=== PATIENT | female | born 1985 | race Caucasian/White ===

== ENCOUNTER 2020-05-14 02:23 | Emergency (ER) | payer OTHER, SELFPAY ==
[2020-05-14 02:30] VITALS: BP 148/86; PULSE 78; RESP 20; TEMP 36.4; O2SAT 100; BMI 31.6
--- NOTE | 2020-05-14 02:37 | ED_ITS ---
HPI - General Adult General Chief complaint: Urogenital-Female Stated complaint: thinks she is passing a kidney stone Time Seen by Provider: 05/14/20 02:24 Source: patient Mode of arrival: Ambulatory Limitations: no limitations History of Present Illness HPI narrative: 34-year-old female with a prior history of kidney stones here for evaluation of right-sided flank pain that she states feels very similar to her prior stones. No fevers. No blood in her urine. Unsure if it was a sudden onset her gradual onset however she does state that it feels like her prior stones. Has not tried anything for symptoms prior to arrival. Related Data Previous Rx's Medication Instructions Recorded [ Rx 1] 1 tab PO QDAY #0 12/16/17 acetaminophen 650 mg PO Q4HP PRN #20 tab 12/16/17 ibuprofen 600 mg PO Q6HP PRN #14 tab 12/16/17 Allergies Allergy/AdvReac Type Severity Reaction Status Date / Time No Known Drug Allergies Allergy Verified 05/14/20 02:39 Review of Systems Constitutional Constitutional: Denies fever(s) Cardiovascular Cardiovascular: Denies chest pain and Denies dyspnea Respiratory Respiratory: Denies dyspnea Gastrointestinal Gastrointestinal: Reports abdominal pain, Denies change in bowel habits, Reports nausea and Denies vomiting Genitourinary Genitourinary: Denies dysuria Genitourinary: Denies dysuria and Denies vaginal discharge Musculoskeletal Musculoskeletal: Denies arthralgias, Reports back pain (Right-sided) and Denies myalgias Integumentary/Breasts Skin/Breast: Denies rash Neurologic Neurologic: Denies behavioral changes and Denies confusion Psychiatric Psychiatric: Denies behavioral changes, Denies confusion and Denies depression Hematologic/Lymphatic Hematologic/Lymphatic: Denies easy bleeding and Denies easy bruising Allergic/Immunologic Allergic/Immunologic: Denies urticaria Patient History Medical History Kidney stones (Acute) Social History Smoking Status: Never smoker Exam Initial Vital Signs Initial Vital Signs: Vital Signs Temperature 97.5 F L 05/14/20 02:30 Pulse Rate 78 05/14/20 02:30 Respiratory Rate 20 05/14/20 02:30 Blood Pressure 148/86 H 05/14/20 02:30 Pulse Oximetry 100 05/14/20 02:30 Const General: cooperative and comfortable Limitations: mental status not altered HENMT Head: normal to inspection and normocephalic Resp Effort & Inspection: normal respiratory effort Cardio Rate: regular rate GI Inspection: non-distended Palpation: soft, No firm and tender (Right 7) Back/Spine/Pelvis Back: CVA tenderness right Skin Lesions: no lesions Rashes: no rashes Neuro General: patient alert and patient awake Extrem General: normal to inspection and capillary refill normal Psych Appearance: grossly normal and well kempt Course Orders Ordered: ED Orders 05/14/20 02:31 Test Urine Stat Urinalysis and Microscopic Stat 05/14/20 02:40 Basic Metabolic Panel Stat Complete Blood Count AUTO DIFF Stat Discontinued Medications Hydrocodone Bitart/Acetaminophen (Vicodin 5/325 Prepack) 1 bottle MISC SEEINSTR ONE Stop: 05/14/20 03:35 Last Admin: 05/14/20 03:41 Dose: 1 bottle Documented by: SARAH Lidocaine HCl 6.5 ml/ Sodium (Chloride) 56.5 mls @ 339 mls/hr IV NOW ONE Stop: 05/14/20 02:40 Last Infusion: 05/14/20 03:10 Dose: 0 mls/hr Documented by: Admin: 05/14/20 02:47 Dose: 339 mls/hr Documented by: SARAH Ketorolac Tromethamine (Toradol) 30 mg IV NOW ONE Stop: 05/14/20 02:39 Last Admin: 05/14/20 02:46 Dose: 30 mg Documented by: SARAH Ondansetron HCl (Zofran Odt Prepack) 1 bottle MISC SEEINSTR ONE Stop: 05/14/20 03:35 Last Admin: 05/14/20 03:41 Dose: 1 bottle Documented by: SARAH Vital Signs Vital signs: Vital Signs - 8 hr 05/14/20 02:30 05/14/20 03:06 05/14/20 03:30 Temperature 97.5 F L Pulse Rate 78 68 65 Respiratory Rate 20 20 18 Blood Pressure 148/86 H 140/82 Pulse Oximetry 100 95 97 Medical Decision Making Lab Data Lab results reviewed: Yes I reviewed the patient's lab results. Result diagrams: 05/14/20 02:40 05/14/20 02:40 Labs: Lab Results 05/14/20 05/14/20 05/14/20 Range/Units 02:31 02:31 02:40 WBC 8.1 (4.5-11.0) X10^3/uL RBC 4.87 (4.0-5.2) X10^6/uL Hgb 13.7 (12.0-16.0) g/dL Hct 41.2 (36-46) % MCV 84.5 (80-100) fL MCH 28.2 (26-34) PG MCHC 33.3 (30-36) % RDW 13.6 (11.6-14.8) % Plt Count 318 (150-400) X10^3/uL Neut % (Auto) 62.3 (50-75) % Lymph % (Auto) 28.7 (25-40) % Sebastian % (Auto) 4.9 (3-14) % Eos % (Auto) 3.5 (2-4) % Baso % (Auto) 0.6 (0-2) % Neut # (Auto) 5000 (1465-4857) /uL Lymph # (Auto) 2300 (1438-6439) /uL Sebastian # (Auto) 400 (0-900) /uL Eos # (Auto) 300 (0-450) /uL Baso # (Auto) 0 (0-100) /uL Sodium (137-145) mmol/L Potassium (3.4-5.1) mmol/L Chloride (98-107) mmol/L Carbon Dioxide (22-32) mmol/L BUN (7-17) mg/dL Creatinine (0.52-1.04) mg/dL Estimated GFR (>60) mL/min BUN/Creatinine Ratio (6-22) Glucose (70-100) mg/dL Calcium (8.4-10.2) mg/dL Urine Color Yellow Urine Appearance Clear Urine pH 6.0 (4.5-8.0) Ur Specific [place] >=1.030 H (1.000-1.035) Urine Protein Negative (Negative) Urine Glucose (UA) Negative (Negative) g/dL Urine Ketones 1+ H (NEGATIVE) Urine Occult Blood 2+ H (Negative) Urine Nitrate Negative (Negative) Urine Bilirubin Negative (NEGATIVE) Urine Urobilinogen 0.2 (0.2) E.U./dL Ur Leukocyte Esterase Negative (NEGATIVE) Urine RBC 1-5/hpf (0-5/HPF) Urine WBC None seen (0-5/HPF) Ur Squamous Epith Cells 1-5 /hpf (0-5/HPF) Urine Bacteria Occasional (0-1) (None) Ur Culture Indicated? Cult not indicated Urine Test Negative (Negative) 05/14/20 Range/Units 02:40 WBC (4.5-11.0) X10^3/uL RBC (4.0-5.2) X10^6/uL Hgb (12.0-16.0) g/dL Hct (36-46) % MCV (80-100) fL MCH (26-34) PG MCHC (30-36) % RDW (11.6-14.8) % Plt Count (150-400) X10^3/uL Neut % (Auto) (50-75) % Lymph % (Auto) (25-40) % Sebastian % (Auto) (3-14) % Eos % (Auto) (2-4) % Baso % (Auto) (0-2) % Neut # (Auto) (2255-7074) /uL Lymph # (Auto) (0225-6738) /uL Sebastian # (Auto) (0-900) /uL Eos # (Auto) (0-450) /uL Baso # (Auto) (0-100) /uL Sodium 135 L (137-145) mmol/L Potassium 3.4 (3.4-5.1) mmol/L Chloride 102 (98-107) mmol/L Carbon Dioxide 21 L (22-32) mmol/L BUN 12 (7-17) mg/dL Creatinine 0.69 (0.52-1.04) mg/dL Estimated GFR > 60.0 (>60) mL/min BUN/Creatinine Ratio 17.4 (6-22) Glucose 156 H (70-100) mg/dL Calcium 10.3 H (8.4-10.2) mg/dL Urine Color Urine Appearance Urine pH (4.5-8.0) Ur Specific [place] (1.000-1.035) Urine Protein (Negative) Urine Glucose (UA) (Negative) g/dL Urine Ketones (NEGATIVE) Urine Occult Blood (Negative) Urine Nitrate (Negative) Urine Bilirubin (NEGATIVE) Urine Urobilinogen (0.2) E.U./dL Ur Leukocyte Esterase (NEGATIVE) Urine RBC (0-5/HPF) Urine WBC (0-5/HPF) Ur Squamous Epith Cells (0-5/HPF) Urine Bacteria (None) Ur Culture Indicated? Urine Test (Negative) MDM Narrative Medical decision making narrative: test is negative, creatinine is unremarkable, urine shows no signs of infection. Patient states that her symptoms are very similar to her prior history of kidney stones. She feels much better after medications provided in the ER. And a discussion with her regarding her symptoms. We did discuss potentially doing a CT scan to confirm the diagnosis verses waiting to see if her symptoms improve/worsen. After this discussion we decided to hold on any radiologic studies for now. Patient was given return precautions and follow-up instructions. We did consider other hansa gnoses such as appendicitis some pyelonephritis however we feel that this is less likely given her history and physical. She expressed understanding and agreement with plan. Discharge Plan Departure Patient Disposition: Home Clinical Impression: Acute right flank pain Discharge Date/Time: 05/14/20 03:49 Instructions: Kidney Stones -- Adult Activity Restrictions/Additional Instructions: Like we discussed prior to your discharge, it is felt that your presenting symptoms today are most consistent with a kidney stone. However, if your symptoms worsen or change or he develops fevers or you develop inability to urinate you do need to return to the emergency department for further evaluatio n. Take the medication as needed and as directed. Return to the emergency department for any new or worsening symptoms Prescriptions: No Action acetaminophen 325 MG tablet 650 mg PO Q4HP PRNQty: 20 RF: 2 [ Rx 1] 1 tab PO QDAY Qty: 0 RF: 0 ibuprofen 600 MG tablet 600 mg PO Q6HP PRNQty: 14 RF: 2 Referrals: Lorrie Nash MD [Primary Care Provider] -
[2020-05-14 02:38] LABS: WBC Urine None Seen (0-5/HPF)
[2020-05-14 02:41] LABS: Appearance Urine UA CLEAR; Bilirubin Urine UA NEGATIVE (NEGATIVE); Color Urine UA YELLOW; Glucose Urine UA NEGATIVE (Negative); Ketones Urine UA 1+ (NEGATIVE); Leukocyte Esterase Urine UA NEGATIVE (NEGATIVE); Nitrite Urine UA NEGATIVE (Negative); Occult Blood Urine UA 2+ (Negative); Protein Urine UA NEGATIVE (Negative); Specific Gravity Urine UA >=1.030 (1.000-1.035); Urobilinogen Urine UA 0.2 E.U./dL (0.2)
[2020-05-14 02:45] LABS: Pregnancy Test Urine Negative (Negative)
[2020-05-14] MEDS: KETOROLAC 60 MG/2 ML VIAL 30 MG IV (02:46)
[2020-05-14] MEDS: LIDOCAINE 2% 6.5 ML in SODIUM CHLORIDE 0.9% 50 ML 339 ML IV (02:47)
[2020-05-14 02:50] LABS: Add Manual Diff / Slide Review NO; Basophils Absolute Auto 0 /uL (0-100); Basophils Percent Auto 0.6 % (0-2); Eosinophils Absolute Auto 300 /uL (0-450); Eosinophils Percent Auto 3.5 % (2-4); Hematocrit 41.2 % (36-46); Hemoglobin 13.7 g/dL (12.0-16.0); Lymphocytes Absolute Auto 2300 /uL (1100-4500); Lymphocytes Percent Auto 28.7 % (25-40); Mean Corpuscular HGB Conc 33.3 % (30-36); Mean Corpuscular Hemoglobin 28.2 PG (26-34); Mean Corpuscular Volume 84.5 fL (80-100); Monocytes Absolute Auto 400 /uL (0-900); Monocytes Percent Auto 4.9 % (3-14); Neutrophils Absolute Auto 5000 /uL (1500-7000); Neutrophils Percent Auto 62.3 % (50-75); Platelet Count 318 X10^3/uL (150-400); Red Blood Cell Count 4.87 X10^6/uL (4.0-5.2); Red Cell Distribution Width 13.6 % (11.6-14.8); White Blood Cell Count 8.1 X10^3/uL (4.5-11.0)
[2020-05-14 02:57] LABS: BUN Creatinine Ratio 17.4 (6-22); Blood Urea Nitrogen 12 mg/dL (7-17); Calcium 10.3 mg/dL (8.4-10.2); Carbon Dioxide 21 mmol/L (22-32); Chloride 102 mmol/L (98-107); Estimated Glomerular Filt Rate > 60.0 mL/min (>60); Glucose 156 mg/dL (70-100); HEMOLYSIS < 15 (0-50); Potassium 3.4 mmol/L (3.4-5.1); Sodium 135 mmol/L (137-145)
[2020-05-14 03:01] LABS: Bacteria Urine Occasional (0-1); Culture Indicated Urine Cult Not Indicated; RBC Urine 1-5/HPF (0-5/HPF); Squamous Epithelial Cell Urine 1-5 /HPF (0-5/HPF)
[2020-05-14 03:06] VITALS: PULSE 68; RESP 20; O2SAT 95
[2020-05-14 03:30] VITALS: BP 140/82; PULSE 65; RESP 18; O2SAT 97
[2020-05-14] MEDS: ONDANSETRON 4 MG ODT PREPACK 1 BOTTLE MISC (03:41)
[2020-05-14] MEDS: HYDROCODONE/ACET 5/325 PREPACK 1 BOTTLE MISC (03:41)
== END 2020-05-14 03:49 | disposition home or self-care (01) ==
PROVIDERS: Emergency Provider Emergency Medicine; Family Provider Family Medicine; PCP Family Medicine
DX: R10.9 Unspecified abdominal pain (principal); R11.0 Nausea; Z87.442 Personal history of urinary calculi
CPT/HCPCS: 36415; 80048; 81001; 81025; 85025; 96365; 96375; 99284; J1885

== ENCOUNTER → 2021-07-09 09:27 | Outpatient (CLI) | payer OTHER, SELFPAY ==
--- NOTE | 2021-07-09 09:30 | DI.US.S_ITS ---
PROCEDURE: US PELVIC COMPLETE INDICATIONS: PELVIC AND PERINEAL PAIN TECHNIQUE: Real-time scanning was performed of the pelvic organs, with image documentation. Additional endovaginal scanning was necessary due to incomplete visualization of the adnexal and endometrial structures by transabdominal scanning. COMPARISON: Reference is made to the CT pelvis dated January 03, 2014. FINDINGS: Uterus: Venous is anteverted, demonstrates mildly heterogeneous echotexture, and measures 7.9 x 4.9 x 3.6 cm. The endometrium measures 6.3 mm in combined thickness. Ovaries: The right ovary measures 3.7 x 2.3 x 2 cm. A 1.3 x 1.5 x 1.2 cm echogenic focus is seen within the right ovary/ adnexa, which may reflect a hemorrhagic cyst. The left ovary measures 2.4 x 1.4 x 1.9 cm. Other: No pathologic free abdominal or pelvic fluid. IMPRESSION: Echogenic focus in the right ovary/adnexa, which may reflect a hemorrhagic cyst. Consider sonographic follow-up in 4-6 weeks to ensure decreasing size over stability. Dictated by: Dereck Garcia M.D. on 07/09/2021 at 15:19 Approved by: Dereck Garcia M.D. on 07/09/2021 at 15:24
== END ==
PROVIDERS: Family Provider Family Medicine; PCP Family Medicine; Referring Provider Family Medicine; Visit Provider Family Medicine
DX: R10.2 Pelvic and perineal pain (principal)
CPT/HCPCS: 76830; 76856

== ENCOUNTER → 2021-08-26 16:23 | Outpatient (CLI) | payer OTHER, SELFPAY ==
[2021-08-26 19:44] LABS: HEMOLYSIS < 15 (0-50)
[2021-08-26 19:48] LABS: Iron 17 ug/dL (37-170)
[2021-08-26 19:59] LABS: Percent Iron Saturation 5 % (15-50); Total Iron Binding Capacity 373 ug/dL (265-497); Transferrin 294 mg/dL (206-381)
[2021-08-26 20:11] LABS: Free T3, Triiodothyronine Free 3.97 pg/mL (2.77-5.27)
[2021-08-26 20:24] LABS: Follicle Stimulating Hormone 3.22 mIU/mL
[2021-08-31 15:36] LABS: Percent Free Testosterone 0.93 % (0.50-2.80); Testosterone Free 0.17 ng/dL (0.10-0.85); Testosterone Total 17.8 ng/dL (10.0-55.0)
== END ==
PROVIDERS: Family Provider Family Medicine; PCP Family Medicine; Referring Provider Obstetrics & Gynecology; Visit Provider Obstetrics & Gynecology
DX: L65.9 Nonscarring hair loss, unspecified (principal); N92.6 Irregular menstruation, unspecified
CPT/HCPCS: 36415; 83001; 83002; 83540; 83550; 84402; 84403; 84481

== ENCOUNTER 2022-07-07 13:31 | Emergency (ER) | payer OTHER, SELFPAY ==
[2022-07-07] VITALS (7 sets, daily range): BP systolic 157–178; BP diastolic 85–99; PULSE 58–70; RESP 16; TEMP 36.7; O2SAT 95–100; BMI 31.8
--- NOTE | 2022-07-07 14:15 | DI.CT.S_ITS ---
PROCEDURE: CT KIDNEY URETER BLADDER (KUB) INDICATIONS: rt flank pain, nephrolithiasis TECHNIQUE: Axial sections were acquired from the lung bases to the pubic symphysis. Coronal and sagittal reformats were performed. For radiation dose reduction, the following was used: automated exposure control, adjustment of mA and/or kV according to patient size. COMPARISON: [facility], CT, KIDNEY/ URETER/BLADDER, 01/03/2014, 20:14. FINDINGS: Image quality: Excellent. Lung bases: Dependent atelectasis in posterior aspect of bilateral lung nelson are seen. Heart: No significant findings. URINARY: Right Kidney: There is mild right-sided hydronephrosis. No renal stone is seen. Right Ureter: Most proximal right hydroureter is noted. There is a 5 mm calcifications seen within proximal right ureter just distal to right UPJ and measures 450 Hounsfield unit in density. More distal right ureter is normal in size. Left Kidney: No stones or hydronephrosis. Left Ureter: No hydroureter. Bladder: Normal wall thickness. No stones. ABDOMEN: Liver: Unremarkable. Gallbladder: Unremarkable. Biliary ducts: Unremarkable. Pancreas: Unremarkable. Spleen: Unremarkable. Adrenal Glands: Unremarkable. Stomach and Bowel: Stomach, small bowel loops, and colon are unremarkable. No evidence of acute appendicitis. Peritoneum: No abnormal intraperitoneal fluid. No free air. Ventral Wall: No hernia. Abdominal Nodes: No enlarged retroperitoneal or mesenteric lymph nodes. Vessels: Aorta and inferior vena cava are normal in size. PELVIS: Pelvic Organs: Unremarkable. Pelvic Nodes: Unremarkable. Miscellaneous: No inguinal hernias are seen. Bones: No suspicious bony lesion. No acute vertebral body compression fracture. IMPRESSION: 1. 5 mm proximal right ureteral stone with mild right-sided hydronephrosis and hydroureter. This stone measures 450 Hounsfield unit in density. No left-sided stones or hydronephrosis. Normal appearing urinary bladder. 2. No bowel obstruction or abnormal bowel wall thickening. No free fluid or free air. No abscess collection. Dictated by: Lai Shine M.D. on 07/07/2022 at 14:55 Approved by: Lai Shine M.D. on 07/07/2022 at 14:58
--- NOTE | 2022-07-07 14:18 | ED.FEMALEGU ---
HPI - Female Genitourinary <RONDA Nava - Last Filed: 07/10/22 11:42> General Chief complaint: Urogenital-Female Stated complaint: thinks passing kidney stone hands numb & tingeling Time Seen by Provider: 07/07/22 13:57 History of Present Illness HPI Narrative: This is a 36-year-old female presents to the emergency department complaining of right-sided flank pain, nausea, history of kidney stones and states that her pain started this morning at 11:00. She went home from work, states that she has referred pain on the right inguinal and right flank region. She is concerned about kidney stones. She states she is never seen a urologist in the past and has not had to have any urological procedures. She endorses nausea without vomiting, flank pain which is worsening, denies fever chills, denies dysuria or urinary frequency over the last few days. Related Data Home Medications Medication Instructions Recorded Confirmed naproxen sodium 220 mg capsule 220 mg PO BID PRN 08/26/21 08/26/21 ([place]) Previous Rx's Medication Instructions Recorded ibuprofen 600 mg tablet 600 mg PO Q6HP PRN #14 tabs 12/16/17 hydrocodone 5 mg-acetaminophen 325 1 tab PO TID PRN pain #14 tabs 07/07/22 mg tablet ondansetron 4 mg disintegrating 4 mg PO Q8H #7 tabs 07/07/22 tablet tamsulosin 0.4 mg capsule 0.4 mg PO DAILY #14 caps 07/07/22 ciprofloxacin HCl 500 mg tablet 500 mg PO BID 10 days #20 tabs 07/10/22 Allergies Allergy/AdvReac Type Severity Reaction Status Date / Time No Known Drug Allergies Allergy Verified 08/26/21 15:24 Review of Systems <RONDA Nava - Last Filed: 07/10/22 11:42> Review of Systems Narrative: Review of systems is negative for acute abnormalities unless otherwise noted in HPI Patient History <RONDA Nava - Last Filed: 07/10/22 11:42> Medical History Chronic back pain (~2017) Foot pain (~2017) Headache (~2014) Kidney stones (~2014) Family History Mother Hypertension Hyperlipidemia Grandfather History of heart disease Hypertension Hyperlipidemia Stroke alcohol intake frequency: 0-2 drinks per day Substance Use Type: does not use Exam <RONDA Nava - Last Filed: 07/10/22 11:42> Narrative Exam Narrative: Reviewed vitals signs and nursing notes. General: cooperative, appears uncomfortable in mild distress, well groomed HEENT: symmetrical facial expressions, moist mucous membranes Cardiovascular: regular rate and rhythm, no peripheral edema, warm extremities Respiratory: normal effort, able to speak in complete sentences, without wheezing, stridor, or abnormal breath sounds. No retractions or tachypnea. GI: abdomen soft, nontender to palpation, nondistended, without masses, +right CVA tenderness, without rebound tenderness or exquisite tenderness with exam. MSK: moves all extremities, neurovascularly intact, no weakness, normal tone Skin: brisk capillary refill, without pallor or erythema Neuro: normal speech and cognition, A&O x3, ambulatory, clear speech Psych: mental status is grossly normal, congruent mood, normal affect, pleasant and cooperative Initial Vital Signs Initial Vital Signs: Vital Signs Pulse Rate 65 07/07/22 13:52 Pulse Oximetry 95 07/07/22 13:52 <Cyndi Mendez DO - Last Filed: 07/13/22 04:42> Initial Vital Signs Initial Vital Signs: Vital Signs Pulse Rate 65 07/07/22 13:52 Pulse Oximetry 95 07/07/22 13:52 Course <RONDA Nava - Last Filed: 07/10/22 11:42> Orders Ordered: Discontinued Medications Hydromorphone HCl (Hydromorphone 0.5 Mg Inj) 0.5 mg IV NOW ONE Stop: 07/07/22 14:29 Last Admin: 07/07/22 14:49 Dose: 0.5 mg Documented By: CHRISTOPHER Lactated Ringer's (Lactated Ringers) 1,000 mls @ 1,000 mls/hr IV BOLUS ONE Stop: 07/07/22 15:27 Last Infusion: 07/07/22 15:50 Dose: 0 mls/hr Documented By: Admin: 07/07/22 14:49 Dose: 1,000 mls/hr Documented By: CHRISTOPHER Ketorolac Tromethamine (Ketorolac 30 Mg/Ml Vial) 15 mg IV NOW ONE Stop: 07/07/22 14:16 Last Admin: 07/07/22 14:22 Dose: 15 mg Documented By: CHRISTOPHER Ondansetron HCl (Ondansetron 4 Mg/2 Ml Inj) 4 mg IV NOW ONE Stop: 07/07/22 14:18 Last Admin: 07/07/22 14:22 Dose: 4 mg Documented By: CHRISTOPHER Tamsulosin HCl (Tamsulosin 0.4 Mg Capsule) 0.4 mg PO NOW ONE Stop: 07/07/22 15:22 Last Admin: 07/07/22 15:31 Dose: 0.4 mg Documented By: CHRISTOPHER Vital Signs Vital signs: Vital Signs - 8 hr 07/07/22 13:54 07/07/22 13:52 07/07/22 13:54 Temperature 98.1 F Pulse Rate 63 65 Respiratory Rate 16 Blood Pressure 178/99 H 178/99 H Pulse Oximetry 99 95 Oxygen Delivery Method Room Air 07/07/22 13:54 07/07/22 14:00 07/07/22 14:38 Temperature Pulse Rate 67 61 58 L Respiratory Rate Blood Pressure Pulse Oximetry 99 100 98 Oxygen Delivery Method 07/07/22 14:39 07/07/22 14:39 07/07/22 15:00 Temperature Pulse Rate 66 Respiratory Rate Blood Pressure 169/87 H 164/85 H Pulse Oximetry 98 Oxygen Delivery Method 07/07/22 15:00 07/07/22 15:30 07/07/22 15:30 Temperature Pulse Rate 67 70 Respiratory Rate Blood Pressure 157/96 H Pulse Oximetry 99 99 Oxygen Delivery Method <Cyndi Mendez, - Last Filed: 07/13/22 04:42> Orders Ordered: Discontinued Medications Hydromorphone HCl (Hydromorphone 0.5 Mg Inj) 0.5 mg IV NOW ONE Stop: 07/07/22 14:29 Last Admin: 07/07/22 14:49 Dose: 0.5 mg Documented By: CHRISTOPHER Lactated Ringer's (Lactated Ringers) 1,000 mls @ 1,000 mls/hr IV BOLUS ONE Stop: 07/07/22 15:27 Last Infusion: 07/07/22 15:50 Dose: 0 mls/hr Documented By: Admin: 07/07/22 14:49 Dose: 1,000 mls/hr Documented By: CHRISTOPHER Ketorolac Tromethamine (Ketorolac 30 Mg/Ml Vial) 15 mg IV NOW ONE Stop: 07/07/22 14:16 Last Admin: 07/07/22 14:22 Dose: 15 mg Documented By: CHRISTOPHER Ondansetron HCl (Ondansetron 4 Mg/2 Ml Inj) 4 mg IV NOW ONE Stop: 07/07/22 14:18 Last Admin: 07/07/22 14:22 Dose: 4 mg Documented By: CHRISTOPHER Tamsulosin HCl (Tamsulosin 0.4 Mg Capsule) 0.4 mg PO NOW ONE Stop: 07/07/22 15:22 Last Admin: 07/07/22 15:31 Dose: 0.4 mg Documented By: CHRISTOPHER Vital Signs Vital signs: Vital Signs - 8 hr 07/07/22 13:54 07/07/22 13:52 07/07/22 13:54 Temperature 98.1 F Pulse Rate 63 65 Respiratory Rate 16 Blood Pressure 178/99 H 178/99 H Pulse Oximetry 99 95 Oxygen Delivery Method Room Air 07/07/22 13:54 07/07/22 14:00 07/07/22 14:38 Temperature Pulse Rate 67 61 58 L Respiratory Rate Blood Pressure Pulse Oximetry 99 100 98 Oxygen Delivery Method 07/07/22 14:39 07/07/22 14:39 07/07/22 15:00 Temperature Pulse Rate 66 Respiratory Rate Blood Pressure 169/87 H 164/85 H Pulse Oximetry 98 Oxygen Delivery Method 07/07/22 15:00 07/07/22 15:30 07/07/22 15:30 Temperature Pulse Rate 67 70 Respiratory Rate Blood Pressure 157/96 H Pulse Oximetry 99 99 Oxygen Delivery Method MDM - Female Genitourinary <REYES NavaP - Last Filed: 07/10/22 11:42> Lab Data Result diagrams: 07/07/22 14:25 07/07/22 14:25 Labs: Lab Results 07/07/22 07/07/22 07/07/22 Range/Units 14:25 14:25 14:26 WBC 8.6 (4.5-11.0) X10^3/uL RBC 4.73 (4.0-5.2) X10^6/uL Hgb 13.1 (12.0-16.0) g/dL Hct 38.3 (36-46) % MCV 81.0 (80-100) fL MCH 27.8 (26-34) PG MCHC 34.3 (30-36) % RDW 14.4 (11.6-14.8) % Plt Count 328 (150-400) X10^3/uL Neut % (Auto) 76.9 H (50-75) % Lymph % (Auto) 17.7 L (25-40) % [place] % (Auto) 4.8 (3-14) % Eos % (Auto) 0.3 L (2-4) % Baso % (Auto) 0.3 (0-2) % Neut # (Auto) 6600 (8117-5906) /uL Lymph # (Auto) 1500 (7363-8422) /uL [place] # (Auto) 400 (0-900) /uL Eos # (Auto) 0 (0-450) /uL Baso # (Auto) 0 (0-100) /uL Sodium 136 L (137-145) mmol/L Potassium 3.7 (3.4-5.1) mmol/L Chloride 101 (98-107) mmol/L Carbon Dioxide 23 (22-32) mmol/L BUN 9 (7-17) mg/dL Creatinine 0.77 (0.52-1.04) mg/dL Estimated GFR > 60 (>60) mL/min BUN/Creatinine Ratio 11.7 (6-22) Glucose 128 H (70-100) mg/dL Calcium 9.0 (8.4-10.2) mg/dL Total Bilirubin 0.3 (0.2-1.3) mg/dL AST 47 H (14-36) IU/L ALT 72 H (<35) IU/L Alkaline Phosphatase 107 (38-126) U/L Total Protein 8.0 (6.3-8.2) g/dL Albumin 4.2 (3.5-5.0) g/dL Globulin 3.8 (1.7-4.1) g/dL Albumin/Globulin Ratio 1.1 (1.0-2.8) Urine RBC 10-30/hpf H (0-5/HPF) Urine WBC 1-5/hpf (0-5/HPF) Ur Squamous Epith Cells 5-10 /hpf H (0-5/HPF) Urine Bacteria Occasional (0-1) (None) Ur Culture Indicated? Specimen cultured Point of Care Testing Test Results Negative Imaging Data CT scan - abdomen/pelvis: Radiologist's Impression: PROCEDURE:? CT KIDNEY URETER BLADDER (KUB) ? INDICATIONS:? rt flank pain, nephrolithiasis ? TECHNIQUE:? Axial sections were acquired from the lung bases to the pubic symphysis.? Coronal and sagittal reformats were performed.? For radiation dose reduction, the following was used: ?automated exposure control, adjustment of mA and/or kV according to patient size.? ? COMPARISON:? [facility], CT, KIDNEY/ URETER/BLADDER, 01/03/2014, 20:14. ? FINDINGS:? Image quality:? Excellent.? ? Lung bases:? Dependent atelectasis in posterior aspect of bilateral lung nelson are seen. Heart:? No significant findings. ? URINARY: Right Kidney:? There is mild right-sided hydronephrosis.? No renal stone is seen. Right Ureter:? Most proximal right hydroureter is noted.? There is a 5 mm calcifications seen within proximal right ureter just distal to right UPJ and measures 450 Hounsfield unit in density.? More distal right ureter is normal in size. ? Left Kidney:? No stones or hydronephrosis. Left Ureter:? No hydroureter. ? Bladder:? Normal wall thickness. No stones. ? ? ? ABDOMEN: Liver:? Unremarkable.? ? Gallbladder:? Unremarkable. Biliary ducts:? Unremarkable.? ? Pancreas:? Unremarkable.? ? Spleen:? Unremarkable.? ? Adrenal Glands:? Unremarkable.? ? ? Stomach and Bowel:? Stomach, small bowel loops, and colon are unremarkable.? No evidence of acute appendicitis. Peritoneum:? No abnormal intraperitoneal fluid.? No free air.? ? Ventral Wall: ? No hernia.? Abdominal Nodes:? No enlarged retroperitoneal or mesenteric lymph nodes.? Vessels:? Aorta and inferior vena cava are normal in size.? ? PELVIS: Pelvic Organs:? Unremarkable.? ? Pelvic Nodes: Unremarkable. Miscellaneous: No inguinal hernias are seen. ? ? ? Bones:? No suspicious bony lesion.? No acute vertebral body compression fracture. ? IMPRESSION:? ? 1. 5 mm proximal right ureteral stone with mild right-sided hydronephrosis and hydroureter.? This stone measures 450 Hounsfield unit in density.? No left-sided stones or hydronephrosis.? Normal appearing urinary bladder. 2. No bowel obstruction or abnormal bowel wall thickening.? No free fluid or free air.? No abscess collection. ? ? Dictated by: Lai Shine M.D. on 07/07/2022 at 14:55 ? ? Approved by: Lai Shine M.D. on 07/07/2022 at 14:58 ? [facility] Narrative Medical decision making narrative: This is a 36-year-old female who is otherwise healthy, has a history of kidney stones who presents to the emergency department with acute onset of right-sided flank pain and right inguinal pain that started at 11:00 today. She states that she completed her menses 3 days ago. is negative on POC, urine microscopy was positive for RBCs, WBCs, squamous epithelial cells, likely contaminant with occasional bacteria. No leukocytosis or anemia, CT KUB is positive for a 5 mm proximal right ureteral stone with mild right hydronephrosis and hydroureter. The stone measures 450 Hounsfield units. More distal right ureter is normal in size. Patient was treated with 15 mg of IV ketorolac, 1 L of normal saline, 0.4 mg of tamsulosin. She was given a urine strainer, her creatinine was not elevated, her pain was improved after pain medications and she was prescribed Toradol p.o., tamsulosin daily for the next 2 weeks, encouraged to stay hydrated and strain her urine for a stone. Encouraged her to follow-up with urology if she does not see the stone or if her pain is worsening. She was given strict return precautions for return to the emergency department for fever, chills, worsening pain, nausea vomiting or decreased urine output. Patient was given 15 mg of IV Toradol, 1 L of IV fluid, Zofran, and 0.5 mg of Dilaudid for her pain. Her chart was forwarded to Dr. Trejo with Urology and patient was given his contact information. No peritoneal signs on abdominal exam. Patient remains p.o. tolerant. Serial abdominal exam without increase in abdominal pain. Given history and exam, low suspicion for acute abdominal process, such as acute cholecystitis, pancreatitis, perforated viscus, atypical appendicitis, colitis, diverticulitis or torsion. Extensive conversation about ER return precautions and need for close follow-up. Patient is appropriate and amenable to discharge home. Vital signs are stable on repeat examination is unremarkable. Patient has been informed of results. Patient has been given strict return to ER precautions for any new or worsening symptoms. Patient understands to follow up closely with outpatient providers as instructed. Patient understands plan and agrees to discharge home. All questions and concerns answered at this time. <Cyndi Froy Mendez, DO - Last Filed: 07/13/22 04:42> Lab Data Labs: Lab Results 07/07/22 07/07/22 07/07/22 Range/Units 14:25 14:25 14:26 WBC 8.6 (4.5-11.0) X10^3/uL RBC 4.73 (4.0-5.2) X10^6/uL Hgb 13.1 (12.0-16.0) g/dL Hct 38.3 (36-46) % MCV 81.0 (80-100) fL MCH 27.8 (26-34) PG MCHC 34.3 (30-36) % RDW 14.4 (11.6-14.8) % Plt Count 328 (150-400) X10^3/uL Neut % (Auto) 76.9 H (50-75) % Lymph % (Auto) 17.7 L (25-40) % [place] % (Auto) 4.8 (3-14) % Eos % (Auto) 0.3 L (2-4) % Baso % (Auto) 0.3 (0-2) % Neut # (Auto) 6600 (7824-2405) /uL Lymph # (Auto) 1500 (7743-5313) /uL [place] # (Auto) 400 (0-900) /uL Eos # (Auto) 0 (0-450) /uL Baso # (Auto) 0 (0-100) /uL Sodium 136 L (137-145) mmol/L Potassium 3.7 (3.4-5.1) mmol/L Chloride 101 (98-107) mmol/L Carbon Dioxide 23 (22-32) mmol/L BUN 9 (7-17) mg/dL Creatinine 0.77 (0.52-1.04) mg/dL Estimated GFR > 60 (>60) mL/min BUN/Creatinine Ratio 11.7 (6-22) Glucose 128 H (70-100) mg/dL Calcium 9.0 (8.4-10.2) mg/dL Total Bilirubin 0.3 (0.2-1.3) mg/dL AST 47 H (14-36) IU/L ALT 72 H (<35) IU/L Alkaline Phosphatase 107 (38-126) U/L Total Protein 8.0 (6.3-8.2) g/dL Albumin 4.2 (3.5-5.0) g/dL Globulin 3.8 (1.7-4.1) g/dL Albumin/Globulin Ratio 1.1 (1.0-2.8) Urine RBC 10-30/hpf H (0-5/HPF) Urine WBC 1-5/hpf (0-5/HPF) Ur Squamous Epith Cells 5-10 /hpf H (0-5/HPF) Urine Bacteria Occasional (0-1) (None) Ur Culture Indicated? Specimen cultured Point of Care Testing Test Results Negative Discharge Plan Departure Patient Disposition: Home Clinical Impression: Ureteral stone with hydronephrosis, Acute flank pain, Hematuria Instructions: Kidney Stones -- Adult Activity Restrictions/Additional Instructions: *You have been diagnosed with a right-sided stone in the ureter measuring 5 mm with mild swelling of the right kidney and ureter. This should pass with anti-inflammatories like Toradol and Flomax. Please stay hydrated, take Toradol every 6-8 hours as needed with food and water for your pain, do not take ibuprofen with this, please use Zofran as needed for any nausea if you have it, lidocaine patches if that is helpful, data suggest that they might be, and Flomax daily. If your pain is gone, not means it is most likely passed. Please strain your urine so that you can identify it hopefully. There are no stones on the left side. If your pain is persistent or worsening, please make an appointment with Urology to the provider below for the soonest available and stay on these medications until you are seen. If you develop a fever or symptoms of infection, please test your urine again. There is no signs of infection today so you likely do not need any antibiotics. This is the pain pills as needed for severe pain, consider that they might cause constipation so you might want to incorporate MiraLax if your taking them for a few days in a row. I hope you feel better soon. *What to do: *Please continue to take your regular medications as directed. [ X] New medication prescriptions sent to your pharmacy: [ [facility]] [ ] New medication written as a paper prescription [ ] No new medications given *Please follow up with your primary care provider in 2-3 days, call for an appointment. Let them know you were seen in the Emergency Department and that we asked that you be seen for follow-up. We will electronically transmit a record of today's note if your PCP is in our system *If you do not have a primary care provider please contact [phone] to establish care with one of the [facility] primary care providers. *Return to Emergency Department if you should have any new, worsening, or concerning symptoms, such as [fever greater than 101F, chills, worsening pain, persistent vomiting or other bothersome symptoms]. Prescriptions: New ondansetron 4 mg tablet,disintegrating 4 mg PO Q8H Qty: 7 0RF tamsulosin 0.4 mg capsule 0.4 mg PO DAILY Qty: 14 0RF hydrocodone-acetaminophen 5-325 mg tablet 1 tab PO TID PRN (Reason: pain) Qty: 14 0RF ciprofloxacin HCl 500 mg tablet 500 mg PO BID 10 Days Qty: 20 0RF Rx Instructions: Please follow up with Dr. Trejo re: urine culture No Action ibuprofen 600 MG tablet 600 mg PO Q6HP PRNQty: 14 2RF naproxen sodium [Aleve] 220 mg capsule 220 mg PO BID PRN Referrals: Partha Trejo MD [Physician] - Lorrie Nash MD [Primary Care Provider] - Visit Report Forms: Patient Portal/API <Cyndi Mendez DO - Last Filed: 07/13/22 04:42> [facility] ED Attending Cesarature Attestation: I was immediately available in the department for consultation. Documentation has been reviewed.
[2022-07-07] MEDS: KETOROLAC 30 MG/ML VIAL 15 MG IV (14:22)
[2022-07-07] MEDS: ONDANSETRON 4 MG/2 ML INJ IV (14:22)
[2022-07-07 14:40] LABS: Bacteria Urine Occasional (0-1); RBC Urine 10-30/HPF (0-5/HPF); Squamous Epithelial Cell Urine 5-10 /HPF (0-5/HPF); WBC Urine 1-5/HPF (0-5/HPF)
[2022-07-07 14:42] LABS: Add Manual Diff / Slide Review NO; Basophils Absolute Auto 0 /uL (0-100); Basophils Percent Auto 0.3 % (0-2); Eosinophils Absolute Auto 0 /uL (0-450); Eosinophils Percent Auto 0.3 % (2-4); Hematocrit 38.3 % (36-46); Hemoglobin 13.1 g/dL (12.0-16.0); Lymphocytes Absolute Auto 1500 /uL (1100-4500); Lymphocytes Percent Auto 17.7 % (25-40); Mean Corpuscular HGB Conc 34.3 % (30-36); Mean Corpuscular Hemoglobin 27.8 PG (26-34); Monocytes Absolute Auto 400 /uL (0-900); Monocytes Percent Auto 4.8 % (3-14); Neutrophils Absolute Auto 6600 /uL (1500-7000); Neutrophils Percent Auto 76.9 % (50-75); Platelet Count 328 X10^3/uL (150-400); Red Blood Cell Count 4.73 X10^6/uL (4.0-5.2); Red Cell Distribution Width 14.4 % (11.6-14.8); White Blood Cell Count 8.6 X10^3/uL (4.5-11.0)
[2022-07-07 14:43] LABS: Culture Indicated Urine Specimen Cultured
[2022-07-07] MEDS: HYDROMORPHONE 0.5 MG INJ IV (14:49)
[2022-07-07] MEDS: LACTATED RINGERS 1,000 ML 1000 ML IV (14:49)
[2022-07-07 14:57] LABS: Alanine Aminotransferase 72 IU/L (<35); Albumin 4.2 g/dL (3.5-5.0); Albumin Globulin Ratio 1.1 (1.0-2.8); Alkaline Phosphatase 107 U/L (38-126); Aspartate Aminotransferase 47 IU/L (14-36); BUN Creatinine Ratio 11.7 (6-22); Bilirubin Total 0.3 mg/dL (0.2-1.3); Blood Urea Nitrogen 9 mg/dL (7-17); Carbon Dioxide 23 mmol/L (22-32); Chloride 101 mmol/L (98-107); Estimated Glomerular Filt Rate > 60 mL/min (>60); Globulin 3.8 g/dL (1.7-4.1); Glucose 128 mg/dL (70-100); HEMOLYSIS < 15 (0-50); Potassium 3.7 mmol/L (3.4-5.1); Sodium 136 mmol/L (137-145)
[2022-07-07] MEDS: TAMSULOSIN 0.4 MG CAPSULE PO (15:31)
== END 2022-07-07 15:52 | disposition home or self-care (01) ==
PROVIDERS: Emergency Provider Nurse Practitioner Critical Care Medicine; Family Provider Family Medicine; PCP Family Medicine
DX: N13.2 Hydronephrosis with renal and ureteral calculous obstruction (principal); R10.9 Unspecified abdominal pain; R31.9 Hematuria, unspecified; R10.2 Pelvic and perineal pain; R11.0 Nausea
CPT/HCPCS: 36415; 74176; 80053; 81015; 81025; 85025; 87086; 96361; 96374; 96375; 99284; J1170; J1885; J2405

== ENCOUNTER → 2022-11-19 14:49 | Outpatient (CLI) | payer OTHER, SELFPAY ==
--- NOTE | 2022-11-19 | DI.US.S_ITS ---
PROCEDURE: US OB <= 14 WEEKS FETUS INDICATIONS: SIZE DATES OUTSIDE/PRIOR DATING DATA: Last menstrual period (LMP): 09/20/2022. LMP-based estimated date of delivery (FERNANDA): 06/27/2023. First dating scan (date and location): Today. Estimated date of delivery (FERNANDA) from first dating scan: 06/26/2023. TECHNIQUE: Real-time scanning was performed of the fetus and maternal pelvic organs, with image documentation. Endovaginal scanning was also performed to better visualize the fetus and maternal ovaries. COMPARISON: None. FINDINGS: Heart rate is 175 beats per minute. [place]-rump length is 2.1 cm. Ultrasound age is 8 weeks and 5 days. There are uterine fibroids measuring up to 1.5 cm 2.3 cm right ovarian complicated suspected cyst. IMPRESSION: Living intrauterine gestation at an ultrasound age of 8 weeks and 5 days. Uterine fibroids. Right ovarian possible complicated cyst. Follow up recommended on future anatomic survey. We strive to produce accurate, complete, and clear reports of imaging services. To assist us in improving patient care, this report was composed using standard report templates and voice recognition software. Therefore, it may contain abnormal punctuation, insertions and/or omissions. Occasional wrong-word or sound-alike substitutions may occur. Though we review the report and make efforts to correct it, we do recommend that the report be read carefully in proper context to recognize any text inaccuracies. Dictated by: Philip Courtney M.D. on 11/19/2022 at 17:07 Approved by: Philip Courtney M.D. on 11/19/2022 at 17:11
== END ==
PROVIDERS: Family Provider Family Medicine; PCP Family Medicine; Referring Provider Family Medicine; Visit Provider Family Medicine
DX: Z36.87 Encounter for antenatal screening for uncertain dates (principal); Z3A.08 8 weeks gestation of pregnancy
CPT/HCPCS: 76801; 76817

== ENCOUNTER → 2023-03-30 07:49 | Outpatient (CLI) | payer OTHER, SELFPAY ==
--- NOTE | 2023-03-30 | DI.US.S_ITS ---
PROCEDURE: US PELVIC COMPLETE INDICATIONS: RIGHT PELVIC PAIN WITH PRESSURE. FOLLOW UP ULTRASOUND. TECHNIQUE: Real-time scanning was performed of the pelvic organs, with image documentation. Additional endovaginal scanning was necessary due to incomplete visualization of the adnexal and endometrial structures by transabdominal scanning. COMPARISON: [facility], US, US OB <= 14 WEEKS FETUS, 11/19/2022, 15:22. [facility], US, US PELVIC COMPLETE, 07/09/2021, 10:07. [facility], CT, CT KIDNEY URETER BLADDER (KUB), 07/07/2022, 14:19. [facility], US, US PELVIC COMPLETE, 08/26/2021, 16:08. FINDINGS: Uterus: Uterus is anteverted and normal in size at 8.6 x 4.8 x 3.7 cm. The myometrium is homogeneous. The endometrium measures 7.5 mm combined thickness. There is a 1.0 x 0.7 x 0.7 cm intramural fibroid in the right uterine wall. There are multiple nabothian cysts and foci of calcification in cervix. Question a 5 mm hyperechoic structure in the lower uterine segment or cervix demonstrating vascularity. Ovaries: The right ovary is only visualized on trans abdominal scan measuring 4.6 x 3.7 x 3.0 cm, with a calculated ovarian volume of 27.3 cc. The left ovary measures 3.8 x 2.3 x 2.2 cm, with a calculated ovarian volume of 10.0 cc. There is a 2.6 x 2.8 x 2.8 cm mixed solid and cystic mass in the right ovary. A 1 cm hypoechoic nodule is seen in left ovary. Other: No pathologic free abdominal or pelvic fluid. IMPRESSION: 1. Question a 5 mm polyp in the lower uterine segment or cervix. 2. A small uterine fibroid. 3. A mixed solid and cystic mass in the right ovary. On the comparison CT, there is fat within the mass, suggesting a dermoid cyst. Recommend ultrasound follow-up in 6-12 weeks. 4. A small 1 cm indeterminate hypoechoic nodule in the left ovary, which can be followed on follow-up imaging. We strive to produce accurate, complete, and clear reports of imaging services. To assist us in improving patient care, this report was composed using standard report templates and voice recognition software. Therefore, it may contain abnormal punctuation, insertions and/or omissions. Occasional wrong-word or sound-alike substitutions may occur. Though we review the report and make efforts to correct it, we do recommend that the report be read carefully in proper context to recognize any text inaccuracies. Dictated by: Janet Alvarez M.D. on 03/30/2023 at 12:10 Approved by: Janet Alvarez M.D. on 03/30/2023 at 12:55
== END ==
PROVIDERS: Family Provider Family Medicine; PCP Family Medicine; Referring Provider Family Medicine; Visit Provider Family Medicine
DX: D25.1 Intramural leiomyoma of uterus; N88.8 Other specified noninflammatory disorders of cervix uteri; N83.9 Noninflammatory disorder of ovary, fallopian tube and broad ligament, unspecified; R10.2 Pelvic and perineal pain
CPT/HCPCS: 76830; 76856

== ENCOUNTER → 2023-06-11 09:24 | Outpatient (CLI) | payer OTHER, SELFPAY ==
[2023-06-11 10:00] LABS: Specimen Label NATERA
[2023-06-11 10:14] LABS: Add Manual Diff / Slide Review NO; Basophils Absolute Auto 0 /uL (0-100); Basophils Percent Auto 0.7 % (0-2); Eosinophils Absolute Auto 100 /uL (0-450); Eosinophils Percent Auto 1.4 % (2-4); Hematocrit 38.9 % (36-46); Hemoglobin 13.5 g/dL (12.0-16.0); Lymphocytes Absolute Auto 1600 /uL (1100-4500); Lymphocytes Percent Auto 27.4 % (25-40); Mean Corpuscular HGB Conc 34.7 % (30-36); Mean Corpuscular Hemoglobin 28.9 PG (26-34); Mean Corpuscular Volume 83.5 fL (80-100); Monocytes Absolute Auto 400 /uL (0-900); Monocytes Percent Auto 6.6 % (3-14); Neutrophils Absolute Auto 3800 /uL (1500-7000); Neutrophils Percent Auto 63.9 % (50-75); Platelet Count 282 X10^3/uL (150-400); Red Blood Cell Count 4.66 X10^6/uL (4.0-5.2); Red Cell Distribution Width 13.4 % (11.6-14.8)
[2023-06-11 10:54] LABS: Appearance Urine UA SL CLOUDY; Bilirubin Urine UA NEGATIVE (NEGATIVE); Color Urine UA YELLOW; Glucose Urine UA NEGATIVE (Negative); Ketones Urine UA NEGATIVE (NEGATIVE); Leukocyte Esterase Urine UA 2+ (NEGATIVE); Nitrite Urine UA NEGATIVE (Negative); Occult Blood Urine UA NEGATIVE (Negative); Protein Urine UA NEGATIVE (Negative); Urobilinogen Urine UA 0.2 E.U./dL (0.2)
[2023-06-11 10:58] LABS: pH Urine UA 6.5 (4.5-8.0)
[2023-06-11 11:08] LABS: Bacteria Urine Occasional (0-1); Culture Indicated Urine Specimen Cultured; RBC Urine 1-5/HPF (0-5/HPF); Squamous Epithelial Cell Urine 5-10 /HPF (0-5/HPF); WBC Urine 10-30/HPF (0-5/HPF)
[2023-06-11 15:55] LABS: Hepatitis B Surface Antigen NEGATIVE s/c (NEGATIVE); Rubella Antibody IgG 10.7 IU/mL (>15)
[2023-06-11 16:19] LABS: HIV 1 & 2 Ab/Ag 4th Gen Combo NEGATIVE (NEGATIVE); Hep C Virus Ab w/Reflex Quant NEGATIVE s/c (NEGATIVE)
[2023-06-12 08:10] LABS: RPR Screen Non Reactive (Non Reactive)
[2023-06-12 09:42] LABS: Varicella IgG Antibody 590 index (Immune >165)
== END ==
PROVIDERS: Family Provider Family Medicine; PCP Family Medicine; Referring Provider Family Medicine; Visit Provider Family Medicine
DX: O09.522 Supervision of elderly multigravida, second trimester (principal); Z34.81 Encounter for supervision of other normal pregnancy, first trimester; O09.521 Supervision of elderly multigravida, first trimester
CPT/HCPCS: 36415; 80055; 81003; 81015; 86787; 86803; 86850; 86900; 86901; 87086; 87389

== ENCOUNTER → 2023-08-05 14:15 | Outpatient (CLI) | payer OTHER, SELFPAY ==
--- NOTE | 2023-08-05 | DI.US.S_ITS ---
PROCEDURE: US OB >= 14 WEEKS FETUS INDICATIONS: 20 WEEK ANATOMY OUTSIDE/PRIOR DATING DATA: Last menstrual period (LMP): June 02, 2023. LMP-based estimated date of delivery (FERNANDA): December 27, 2022. First dating scan (date and location): July 27, 2023. Estimated date of delivery (FERNANDA) from first dating scan: January 06, 2024. TECHNIQUE: Real-time scanning was performed of the fetus, with image documentation and biometric measurements. COMPARISON: None. FINDINGS: General: A single living intrauterine gestation is present. Presentation: Breech. Placenta: Placental position is posterior , without previa. Amniotic fluid index: 15 cm, normal range is 5-24 cm. Single deepest vertical pocket is 4.6 cm. heart rate: 153 beats per minute. Maternal cervical canal: 4.6 cm long. Normal lower limit is 2.5 cm. biometrics: Biparietal diameter: 4.4 cm, 19 weeks, 1 day Head circumference: 15.9 cm, 18 weeks, 5 days Abdominal circumference: 14.1 cm, 19 weeks, 3 days Femur length: 3.0 cm, 19 weeks, 1 day Clinically estimated gestational age: 18 weeks, 0 days Composite gestational age from present scan: 19 weeks, 1 day Estimated weight and percentile: 282 g, 98% Anatomic survey: Neuro: Ventricles are non-dilated at less than 10 mm. Cisterna magna is normal at 3-11 mm. Cerebellum is normal in size and morphology. Nuchal skin fold: Normal at less than 6 mm between 14-21 weeks gestational age. Face: Nose and lips, facial profile are normal. Spine: No evidence for spina bifida. Heart: 4-chambered heart is present, with normal ventricular outflow tracts. Diaphragm: Diaphragm is intact. Stomach: Left-sided stomach is present. Kidneys: No hydronephrosis. Normal is less than 5 mm in 2nd trimester, less than 7 mm in 3rd trimester. Cord: 3-vessel cord has orthotopic insertion. Bladder: Normal in size. Extremities: All 4 extremities identified. IMPRESSION: 1. Single live intrauterine gestation with a composite gestational age of 19 weeks, 3 days which is concordant with dates by LMP. 2. No sonographic anatomic abnormalities. We strive to produce accurate, complete, and clear reports of imaging services. To assist us in improving patient care, this report was composed using standard report templates and voice recognition software. Therefore, it may contain abnormal punctuation, insertions and/or omissions. Occasional wrong-word or sound-alike substitutions may occur. Though we review the report and make efforts to correct it, we do recommend that the report be read carefully in proper context to recognize any text inaccuracies. Dictated by: Quiana Gentile M.D. on 08/05/2023 at 17:05 Approved by: Quiana Gentile M.D. on 08/05/2023 at 17:07
== END ==
PROVIDERS: Family Provider Family Medicine; PCP Family Medicine; Referring Provider Family Medicine; Visit Provider Family Medicine
DX: Z34.02 Encounter for supervision of normal first pregnancy, second trimester (principal); Z3A.19 19 weeks gestation of pregnancy
CPT/HCPCS: 76811

== ENCOUNTER → 2023-10-05 11:10 | Outpatient (CLI) | payer OTHER, SELFPAY ==
[2023-10-05 13:49] LABS: Add Manual Diff / Slide Review NO; Basophils Absolute Auto 0 /uL (0-100); Basophils Percent Auto 0.1 % (0-2); Eosinophils Absolute Auto 0 /uL (0-450); Eosinophils Percent Auto 0.5 % (2-4); Hematocrit 37.5 % (36-46); Hemoglobin 13.1 g/dL (12.0-16.0); Lymphocytes Absolute Auto 1600 /uL (1100-4500); Lymphocytes Percent Auto 17.8 % (25-40); Mean Corpuscular HGB Conc 34.9 % (30-36); Mean Corpuscular Hemoglobin 29.4 PG (26-34); Mean Corpuscular Volume 84.2 fL (80-100); Monocytes Absolute Auto 500 /uL (0-900); Neutrophils Absolute Auto 6700 /uL (1500-7000); Neutrophils Percent Auto 75.6 % (50-75); Platelet Count 279 X10^3/uL (150-400); Red Blood Cell Count 4.45 X10^6/uL (4.0-5.2); Red Cell Distribution Width 13.6 % (11.6-14.8); White Blood Cell Count 8.9 X10^3/uL (4.5-11.0)
[2023-10-05 13:57] LABS: GTT (PREG) 1 Hour PP 50gm Dose 106 mg/dL (76-139)
== END ==
LOC: LAB 11:10
PROVIDERS: Family Provider Family Medicine; PCP Family Medicine; Referring Provider Family Medicine; Visit Provider Family Medicine
DX: O09.529 Supervision of elderly multigravida, unspecified trimester (principal)
CPT/HCPCS: 36415; 82950; 85025; 86850

== ENCOUNTER → 2023-12-01 10:52 | Outpatient (CLI) | payer OTHER, SELFPAY ==
[2023-12-02 09:59] LABS: Strep Grp B PCR NEG for Grp B Strep
== END ==
PROVIDERS: Family Provider Family Medicine; PCP Family Medicine; Visit Provider Family Medicine
DX: Z34.83 Encounter for supervision of other normal pregnancy, third trimester (principal)
CPT/HCPCS: 87653

== ENCOUNTER 2024-01-03 19:30 | Inpatient (IN) | payer OTHER, SELFPAY ==
[2024-01-03] MEDS: miSOPROStoL 25 MCG TABLET 50 MCG PO (20:33)
[2024-01-03 20:51] LABS: Add Manual Diff / Slide Review NO; Basophils Absolute Auto 0 /uL (0-100); Basophils Percent Auto 0.5 % (0-2); Eosinophils Absolute Auto 100 /uL (0-450); Eosinophils Percent Auto 0.8 % (2-4); Hematocrit 36.3 % (36-46); Hemoglobin 12.5 g/dL (12.0-16.0); Lymphocytes Absolute Auto 1600 /uL (1100-4500); Lymphocytes Percent Auto 19.7 % (25-40); Mean Corpuscular HGB Conc 34.4 % (30-36); Mean Corpuscular Volume 84.2 fL (80-100); Monocytes Absolute Auto 600 /uL (0-900); Neutrophils Absolute Auto 6000 /uL (1500-7000); Platelet Count 232 X10^3/uL (150-400); Red Blood Cell Count 4.31 X10^6/uL (4.0-5.2); Red Cell Distribution Width 14.2 % (11.6-14.8); White Blood Cell Count 8.4 X10^3/uL (4.5-11.0)
[2024-01-04] MEDS: miSOPROStoL 25 MCG TABLET 50 MCG PO (00:36)
--- NOTE | 2024-01-04 06:40 | PM.AN.REGBLK ---
[facility] <Alexia Rodriguez CRNA - Last Filed: 01/04/24 06:52> Pre-procedure Procedure: Continuous Lumbar Epidural for L&D Attending OB provider: Ellen Stapleton PMH/ROS narrative: PMH of kidney stone and PCOS Exam narrative: MP 1 Lungs clear and heart sounds S1 S2 ASA Class: II Labs: Hct 36.3 % (36-46) 01/03/24 20:08 Plt Count 232 X10^3/uL (150-400) 01/03/24 20:08 Medications: Current Medications Generic Name Dose Route Start Last Admin Trade Name Freq PRN Reason Stop Dose Admin Calcium Carbonate 1,000 mg 01/03/24 19:44 Calcium Carbonate 500 Mg Tab PO Q4HR PRN Dyspepsia Carboprost Tromethamine 250 mcg 01/03/24 19:44 Carboprost 250 Mcg/Ml Ampul IM Q90M PRN Bleeding Oxytocin/Lactated Ringer's 30 unit in 500 mls @ 200 mls/hr 01/03/24 19:44 Oxytocin Premix IV CONT PRN Bleeding Protocol Tranexamic Acid 1,000 mg/ 100 mls @ 200 mls/hr 01/03/24 19:44 Sodium Chloride IV NOW PRN Bleeding Oxytocin/Lactated Ringer's 30 unit in 500 mls @ 2 mls/hr 01/03/24 19:45 Oxytocin Premix IV TITRATE ARNULFO Protocol 2 MILLIUNIT/MIN Lactated Ringer's 1,000 mls @ 100 mls/hr 01/03/24 19:45 Lactated Ringers IV CONT ARNULFO Lidocaine HCl 20 ml 01/03/24 19:44 Lidocaine 1% 20 Ml INJ INTRA-OP PRN Post Delivery Methylergonovine Maleate 0.2 mg 01/03/24 19:44 Methylergonovine 0.2 Mg/Ml Vial IM NOW PRN Bleeding Methylergonovine Maleate 0.2 mg 01/03/24 19:44 Methylergonovine 0.2 Mg Tablet PO Q6HR PRN Heavy Bleeding Misoprostol 50 mcg 01/03/24 19:45 01/04/24 00:36 Misoprostol 25 Mcg Tablet PO 50 mcg Q4H ARNULFO Administration Misoprostol 400 mcg 01/03/24 19:44 Misoprostol 200 Mcg Tablet SL NOW PRN Bleeding Misoprostol 800 mcg 01/03/24 19:44 Misoprostol 200 Mcg Tablet NC NOW PRN Bleeding Naloxone HCl 0.2 mg 01/03/24 19:44 Naloxone 0.4 Mg/Ml Vial IV Q2MIN PRN Opiate Reversal Ondansetron HCl 4 mg 01/03/24 19:44 Ondansetron 4 Mg/2 Ml Inj IV Q4HR PRN Nausea And Vomiting Oxytocin 10 unit 01/03/24 19:44 Oxytocin 10 Unit/Ml Vial IM NOW PRN Bleeding Allergies: Allergies Allergy/AdvReac Type Severity Reaction Status Date / Time No Known Drug Allergies Allergy Verified 12/28/23 14:09 --: Epidural needle inserted approx 4 cm and blood via needle. Removed needle flushed with saline and placed replaced needle slightly to left within same local wheal. No blood with second placement. Procedure Insertion date: 01/04/24 Insertion time: 03:21 Prep/Local: 1% lidocaine (chloroprep) Interspace: L3-4 Patient position: sitting Needle: 18 gauge Hustead Loss of resistance with: saline NOAH at (cm): 8 Catheter placed at SKIN (cm): 13 Catheter in SPACE (cm): 5 Insertion: No CSF, Yes Blood, No Paresthesia with insertion, No Paresthesia with injection and No Test dose reaction Initial Medications TEST DOSE time: 03:25 Infusion Initial rate (mL/hr): 8 Post-procedure Anesthesia date START: 01/04/24 Anesthesia time START: 03:04 (At bedside for interview.) <Johanna Sullivan, DO - Last Filed: 01/04/24 14:19> Infusion Subsequent interventions: 09:15 Checked on pt. She reports she is feeling her contractions more and has pushed the PCEA button a few times; reports pain with contractions 5/10 and requests a bolus. Infusion bag noted to be almost empty. Bolused pt with remaining med in epidural bag, total of 8 ml. Increased infusion rate from 8 to 10 ml/hr and increased PCEA dose from 3 to 5 ml. New bag started. Pt reports she is feeling more comfortable within five minutes of bolus. Remains able to move BLE with LLE movement better than RLE. KR Post-procedure Anesthesia date END: 01/04/24 Anesthesia time END: 11:19 Post-procedure Anesthesia Assessment: Yes CV function: HR/BP stable, Yes Resp function: RR/sat/airway adequate, Yes Post-op hydration adequate, Yes Pain control adequate, Yes Nausea & vomiting absent, Yes Temperature > 36 C, Yes Mental status appropriate and No Anesthesia complications
[2024-01-04] MEDS: OXYTOCIN PREMIX 30 UNIT/500 ML PLAST..BAG IV (08:05)
--- NOTE | 2024-01-04 08:33 | P.HPOB_ITS ---
OB HPI Date/Time Date of admission: 01/03/24 Date Patient Seen: 01/04/24 History of Present Condition Chief complaint: labor FERNANDA Calculator 2 Estimated Delivery Date Method Current WG Current Estimate 12/28/23 Manual 41w 0d Final FERNANDA - LILY Other Estimates 12/28/23 LMP (Uncertain) 41w 0d 01/06/24 Ultrasound #1 39w 5d 12/29/23 Ultrasound #2 40w 6d Estimated Gestational Age (weeks): 41w0d : 3 Para: 1 Narrative: Pt is a 38yo at 41w0d here for post-dates IOL. The pt denies any vaginal bleeding, contractions, LOF prior to presentation. She is feeling her baby move regularly. There were no complications with her . care: initiated at week # Dating criteria OB: LMP confirmed by 1st trimester US Ultrasounds: normal 1st trimester US and normal mid trimester US Obstetrical complications: none Medical complications OB: none Indications Indication for induction OB: post dates Preadmission Labs Last OB Lab Results: 2 Blood Type A Positive 01/03/24 20:08 Antibody Screen Negative 01/03/24 20:08 Hematocrit 36.3 % (36-46) 01/03/24 20:08 Hemoglobin 12.5 g/dL (12.0-16.0) 01/03/24 20:08 Hepatitis B Surface Antigen Negative s/c (NEGATIVE) 06/11/23 09 :45 Hepatitis C Antibody Negative s/c (NEGATIVE) 06/11/23 09:45 Rubella Antibody 10.7 IU/mL (>15) L 06/11/23 09:45 Varicella-Zoster IgG Antibody 590 index (Immune >165) 06/11/23 09:45 Glucose 1 Hour 106 mg/dL (76-139) 10/05/23 11:45 Group B Streptococcus (PCR) Neg for grp b strep 12/01/23 10:52 -: Urine: negative Genetic Screens: Cell-free DNA: Normal External Labs -: Urine: negative Prior (ies) Past Pregnancies Del. Date GA/Weeks Labor Lgth Wt Sex Route Outcome Anesthesia Place Delv Breastfeed Preg Comp Name 12/14/17 40.4 14 7 lb 6 oz Female vaginal live - full term IH 3-4 months none other Finlee 12/22/22 13 spontaneous Delivery Date: 12/14/17 Last Updated by: Aretha Johnson RN severe GERD during Evaluation Evaluation Baseline heart rate: 130 Variability: Moderate (11-25) monitor accelerations: Present Monitor Decelerations: Absent Contraction Frequency (minutes): 4 Status: Category l Dilation (cm): 5 Effacement (%): 60 station: -1 [facility] Medical History (Updated 06/22/23 @ 09:15 by Ellen Stapleton MD) PCOS (polycystic ovarian syndrome) History of Western blot positive for HSV1 Chronic back pain (~2017) Kidney stones (~2014) Family History Mother Hypertension Hyperlipidemia Stroke Obesity Grandfather History of heart disease Hypertension Hyperlipidemia Stroke Heart attack Obesity Father Healthy adult Grandmother No problems noted. Family/Other Depression Anxiety Obesity Social History marital status: number of children: 1 household members: spouse and children lives independently: Yes caregiver/support person: Yes housing: apartment pets and animals: Yes (2 cats; manages litter box) education level: college occupational status: employed current occupational exposures/hazards: No special dianna needs: No travel history: recent seatbelt use: always water heater temp set < 120 deg: Yes working smoke detector in home: Yes fire extinguisher in home: Yes carbon monox detector in home: Yes firearms in home: Yes do you feel safe at home: Yes Smoking Status: Former smoker Tobacco: How many years used: 2 second hand exposure: No alcohol intake: former substance use type: does not use and marijuana during the past year weight has: other daily servings fruits/ve-4 caffeine: Yes (1 cup coffee/day) Type(s) of exercise: walking frequency: 5-6 times per week duration: 15-30 minutes/day Meds Home Medications and Allergies Home Medications Medication Instructions Recorded Confirmed Type prenat.vits,helen,gnj-oscm-kqfgj 1 tab PO DAILY 12/02/22 12/28/23 History Allergies Allergy/AdvReac Type Severity Reaction Status Date / Time No Known Drug Allergies Allergy Verified 12/28/23 14:09 OB Exam Resp Effort & Inspection: normal respiratory effort Auscultation: clear to auscultation bilaterally Cardio Rate: regular rate Rhythm: regular rhythm Heart Sounds: S1 normal, S2 normal and no murmurs GI Inspection: non-distended Palpation: Yes soft and No tender Presentation: vertex Objective Labs 01/03/24 20:08 Labs: Laboratory Results - last 24 hr 01/03/24 20:08 WBC 8.4 RBC 4.31 Hgb 12.5 Hct 36.3 MCV 84.2 MCH 29.0 MCHC 34.4 RDW 14.2 Plt Count 232 Neut % (Auto) 72.0 Lymph % (Auto) 19.7 L [place] % (Auto) 7.0 Eos % (Auto) 0.8 L Baso % (Auto) 0.5 Neut # (Auto) 6000 Lymph # (Auto) 1600 [place] # (Auto) 600 Eos # (Auto) 100 Baso # (Auto) 0 Blood Type A Positive Antibody Screen Negative Assessment and Plan Assessment and Plan Assessment and Plan narrative: 38yo at 41w0d here for post-dates IOL. GBS negative, Rh positive. No complications with . Pt received 2 doses of cytotec overnight with good cervical change. - FHT reassuring - GBS negative, no prophylaxis needed - Epidural in place for pain control - On pitocin, titrate as tolerated - Plan to recheck cervix once contractions more consistent and closer
[2024-01-04] MEDS: FENT 2MCG/ML BUPIV 0.125% EPI 200 MCG/100 ML PLAST..BAG 6 MCG EPIDURAL (09:13)
--- NOTE | 2024-01-04 12:03 | PM.OBPRVD ---
Labor & Delivery Delivery date: 01/04/24 Intrapartal Events: None Cervical ripening method: per misoprostal protocol Induction method: per pitocin protocol Delivery monitor: external FHT and external uterine Route of delivery: Episiotomy description: None L&D Laceration Description: Perineal - 2nd Degree Quantitative Blood Loss: 235 Anesthesia Type: Epidural Complications: None Narrative: PROCEDURE: at 41w0d presented for post-dates IOL and was admitted to Labor and Delivery. The patient progressed through the 1st stage over 9 hours. SROM occured at 2:07 with clear fluid. Pain was controlled with an epidural. The patient progressed through the 2nd stage over 15 minutes and delivered a viable female infant with APGARs 8/9 at 11:19 via . Nuchal cord was reduced after delivery. The cord was cut and clamped after it stopped pulsating. The placenta delivered with gentle cord traction, and appeared complete. The perineum and vagina were inspected with 2nd degree perineal laceration repaired with 2-O Chromic. Needle and sponge counts were correct.? The vagina was inspected and no items were left in situ. Zena was doing well with her and her at bedside. PREPROCEDURE DIAGNOSIS: Intrauterine at 41w0d AMA GBS negative RH positive POSTPROCEDURE DIAGNOSIS: Intrauterine at 41w0d, delivered Same as preprocedure [place] Baby 1: gender: Male Presentation: vertex Position: Left Occiput Anterior Placenta delivery description: Spontaneous Cord Vessel Description: 3 Vessels and Nuchal Cord score (1 min): 8 score (5 min): 9 weight: 7 lb 7.79 oz Plan for aftercare: Routine care
[2024-01-04] MEDS: ACETAMINOPHEN 325 MG TABLET 650 MG PO ×2 (13:24→19:48)
[2024-01-04] MEDS: IBUPROFEN 600 MG TABLET PO ×2 (13:25→19:48)
[2024-01-05] MEDS: ACETAMINOPHEN 325 MG TABLET 650 MG PO ×2 (02:54→09:09)
[2024-01-05] MEDS: IBUPROFEN 600 MG TABLET PO ×2 (02:55→09:10)
--- NOTE | 2024-01-05 08:42 | PM.OBDS.1 ---
Discharge Providers Provider Date of admission: 01/03/24 19:30 Discharge Date: 01/05/24 Primary care physician: Lorrie Nash MD Consults: 01/05/24 12:01 Consult to Utility System Operator Routine Comment: Discharge provider: Ellen Stapleton MD Summary Hospital Course Date Patient Seen: 01/05/24 Diagnoses: Intrauterine at 41w0d AMA GBS negative RH positive Hospital Course: The pt presented for post-dates IOL. She received cytotec followed by pitocin. She had an epidural for pain control. She had SROM with clear fluid present. She progressed to complete and had an uncomplicated of a viable baby boy. A small 2nd degree perineal laceration was repaired. , there were no complications. At the time of discharge she was voiding, ambulating, and passing flatus without difficulty. Her lochia was decreasing appropriately. Her pain was well controlled. She was with good latch. She will f/u in 6 weeks for check. Her plans on vasectomy for contraception. Peripartum Data Delivery Method: Natural Vaginal Laceration Description: Perineal - 2nd Degree Episiotomy description: None Procedures: Spontaneous vaginal delivery complications: none [place] 1: Gender: Male Disposition of : home Time Spent with Patient Time attestation: Total time spent providing and/or coordinating discharge services: Objective Labs 01/03/24 20:08 Exam Narrative Exam Narrative: Gen: NAD, sitting comfortably in bed, appears well CV: RRR, no murmurs Resp: clear to auscultation bilaterally Abd: soft, appropriately tender, fundus firm and below the umbilicus, nondistended Ext: no edema Discharge Plan Discharge Plan Patient Disposition: Home Discharge orders & Medications Prescriptions: New acetaminophen 325 mg Tablet 650 mg PO Q6HR PRN (Reason: Pain, Mild (1-3)) Qty: 30 0RF docusate sodium 100 mg Capsule 100 mg PO DAILY Qty: 30 0RF ibuprofen 600 mg Tablet 600 mg PO Q6HR PRN (Reason: Pain, Mild (1-3)) Qty: 60 0RF Continued prenat.vits,helen,eps-mdpl-fzrnq Tablet 1 tab PO DAILY Follow up/Referrals: Ellen Stapleton MD [Physician] - 6 Weeks Lorrie Nash MD [Primary Care Provider] - Diet/Activity/Treatments Diet: Diet as Tolerated and Regular Skin/Wound/Dressing Care Report to your healthcare provider any signs of infection, such as:: chills, fever, increased pain and unusual drainage Visit Report/Discharge Packet Instructions: DI for Labor and Delivery, Vaginal Stand Alone Forms: Patient Portal/API, Stroke Signs & Symptoms Discharge Data Primary Care Provider: Lorrie Nash
[2024-01-05] MEDS: DOCUSATE 100 MG CAPSULE PO (09:10)
[2024-01-05] MEDS: MEASLES,MUMPS,RUBELLA VACC/PF 0.5 ML VIAL SUBCUT (11:02)
== END 2024-01-05 11:34 | disposition home or self-care (01) | DRG 807 ==
PROVIDERS: Admitting Provider Family Medicine; Family Provider Family Medicine; PCP Family Medicine; Referring Provider Family Medicine; Visit Provider Family Medicine
DX: O48.0 Post-term pregnancy (principal); Z37.0 Single live birth; Z3A.41 41 weeks gestation of pregnancy; O70.1 Second degree perineal laceration during delivery
CPT/HCPCS: 36415; 59050; 59200; 85025; 86850; 86900; 86901; G0379; J2590

== ENCOUNTER 2024-01-09 00:31 | Inpatient (IN) | payer OTHER, SELFPAY ==
[2024-01-09] VITALS (35 sets, daily range): BP systolic 97–170; BP diastolic 58–105; PULSE 65–101; RESP 12–20; TEMP 36.2–36.9; O2SAT 94–100; BMI 36.6; BMI 36.7
[2024-01-09 01:55] LABS: Add Manual Diff / Slide Review NO; Basophils Absolute Auto 0 /uL (0-100); Basophils Percent Auto 0.4 % (0-2); Eosinophils Absolute Auto 200 /uL (0-450); Eosinophils Percent Auto 2.3 % (2-4); Hemoglobin 12.1 g/dL (12.0-16.0); Lymphocytes Absolute Auto 2400 /uL (1100-4500); Lymphocytes Percent Auto 29.4 % (25-40); Mean Corpuscular HGB Conc 34.5 % (30-36); Mean Corpuscular Hemoglobin 29.3 PG (26-34); Mean Corpuscular Volume 84.8 fL (80-100); Monocytes Absolute Auto 500 /uL (0-900); Monocytes Percent Auto 6.8 % (3-14); Neutrophils Absolute Auto 4900 /uL (1500-7000); Neutrophils Percent Auto 61.1 % (50-75); Platelet Count 262 X10^3/uL (150-400); Red Blood Cell Count 4.13 X10^6/uL (4.0-5.2); Red Cell Distribution Width 14.1 % (11.6-14.8)
--- NOTE | 2024-01-09 02:02 | ED.URI ---
HPI - URI/Sore Throat General Chief Complaint: Upper Respiratory Symptoms Stated Complaint: Heavy bleed post child 01/04/2024 Time Seen by Provider: 01/09/24 01:34 Source: patient Mode of arrival: Ambulatory History of Present Illness HPI Narrative: Patient is a 38-year-old female 011 41 weeks day number or presenting today with sudden onset of shortness of breath. She reports he was sleeping on the couch she woke up she felt like she could not taken a breath at all she got onto all fours she was gasping for air lasted for less than 1 minute. She is also noted she has had some swelling of her legs in his here for evaluation. She states that she has had some ongoing dry throat and soreness in her throat no fever or chills. She previously did not have any sort of cough or shortness of breath. She states that when her daughter was born she had acid reflux in had shortness of breath at time but she does not feel like she is shortness of breath now. She has no headache chest pain or other symptoms. She has no cough. She does feel like she has a little bit of a cold with ongoing sore throat. sHe is noted to be hypertensive with a blood pressure 170/89. She did not have any gestational hypertension or preeclampsia she was induced secondary to post Patient reports that she still has had some bleeding from her 2nd degree vaginal tear but she feels like that is overall improving along with her vaginal bleeding as well. Pain. Related Data Home Medications Medication Instructions Recorded Confirmed prenat.vits,helen,[id number] 1 tab PO DAILY 12/02/22 01/04/24 Previous Rx's Medication Instructions Recorded acetaminophen 325 mg tablet 650 mg (2 x 325 mg) PO Q6HR PRN 01/05/24 Pain, Mild (1-3) #30 tabs docusate sodium 100 mg capsule 100 mg PO DAILY #30 caps 01/05/24 ibuprofen 600 mg tablet 600 mg PO Q6HR PRN Pain, Mild 01/05/24 (1-3) #60 tabs Allergies Allergy/AdvReac Type Severity Reaction Status Date / Time No Known Drug Allergies Allergy Verified 01/04/24 13:08 Patient History Medical History (Updated 01/09/24 @ 02:49 by Aria Traore DO) PCOS (polycystic ovarian syndrome) History of Western blot positive for HSV1 Chronic back pain (~2018) Kidney stones (~2014) Family History Mother Hypertension Hyperlipidemia Stroke Obesity Grandfather History of heart disease Hypertension Hyperlipidemia Stroke Heart attack Obesity Father Healthy adult Grandmother No problems noted. Family/Other Depression Anxiety Obesity Social History marital status: number of children: 1 household members: spouse and children lives independently: Yes caregiver/support person: Yes housing: apartment pets and animals: Yes (2 cats; manages litter box) education level: college occupational status: employed current occupational exposures/hazards: No special dianna needs: No travel history: recent seatbelt use: always water heater temp set < 120 deg: Yes working smoke detector in home: Yes fire extinguisher in home: Yes carbon monox detector in home: Yes firearms in home: Yes do you feel safe at home: Yes Smoking Status: Former smoker Tobacco: How many years used: 2 second hand exposure: No alcohol intake: former substance use type: does not use and marijuana during the past year weight has: other daily servings fruits/ve-4 caffeine: Yes (1 cup coffee/day) Type(s) of exercise: walking frequency: 5-6 times per week duration: 15-30 minutes/day Smoking Status: Former smoker alcohol intake frequency: 0-2 drinks per day Substance Use Type: does not use Exam Initial Vital Signs Initial Vital Signs: Vital Signs Temperature 97.4 F L 01/09/24 00:39 Pulse Rate 80 01/09/24 00:39 Respiratory Rate 16 01/09/24 00:39 Blood Pressure 170/89 H 01/09/24 00:39 Pulse Oximetry 97 01/09/24 00:39 Oxygen Delivery Method Room Air 01/09/24 00:39 GENERAL: Alert very pleasant 60-year-old female and in no acute distress. HEENT: Head atraumatic,EOMI, pupils reactive, face symmetric, moist mucous membranes PHARYNX: No significant erythema tonsillar exudate or uvula deviation CARDIOVASCULAR: Regular rate and rhythm without murmurs, rubs or gallops. RESPIRATORY: Breath sounds equal bilaterally, no wheezes rales or rhonchi. ABDOMEN: Soft, nontender. Normoactive bowel sounds all 4 quadrants. No guarding or rebound. EXTREMITIES: Normal range of motion, no clubbing. +1 pitting edema Neurovascularly intact NEUROLOGICAL: Alert and oriented x4. SKIN: Warm, dry, no laceration, no petechiae, no rashes or lesions. Course Orders Ordered: ED Orders 01/09/24 01:42 Protein Creatinine Ratio Urine Stat UA Complete [Urinalysis and Microscopic] Stat Urine Culture Stat 01/09/24 01:45 Complete Blood Count AUTO DIFF Stat Comprehensive Metabolic Panel Stat LDH [Lactate Dehydrogenase] Stat Uric Acid Stat 01/09/24 02:03 Chest [XR chest 1V] Stat Acetaminophen (Acetaminophen 325 Mg Tablet) 650 mg PO Q6H PRN PRN Reason: Fever/Mild Pain (1-3) Lactated Ringer's (Lactated Ringers) 1,000 mls @ 25 mls/hr IV CONT ARNULFO Last Admin: 01/09/24 03:47 Dose: 25 mls/hr Documented By: NYDIA Magnesium Sulfate (Magnesium Sulfate) 20 gm in 500 mls @ 50 mls/hr IV CONT ARNULFO Last Admin: 01/09/24 04:17 Dose: 50 mls/hr Documented By: NYDIA Co-signed By: LILO Labetalol HCl (Labetalol 100 Mg Tablet) 200 mg PO TID ARNULFO Last Admin: 01/09/24 04:13 Dose: 200 mg Documented By: NYDIA Labetalol HCl (Labetalol 20 Mg/4 Ml Syringe) 20 mg IV PRN PRN PRN Reason: Hypertensive Emergency Ondansetron HCl (Ondansetron 4 Mg/2 Ml Inj) 4 mg IV Q4HR PRN PRN Reason: Nausea And Vomiting Zolpidem Tartrate (Zolpidem 5 Mg Tablet) 5 mg PO BEDTIME PRN PRN Reason: Sleep Discontinued Medications Furosemide (Furosemide 20 Mg Tablet) 10 mg PO NOW ONE Stop: 01/09/24 03:21 Last Admin: 01/09/24 03:46 Dose: 10 mg Documented By: NYDIA Magnesium Sulfate (Magnesium Sulfate) 4 gm in 100 mls @ 150 mls/hr IV NOW ONE Stop: 01/09/24 03:59 Last Admin: 01/09/24 03:47 Dose: 150 mls/hr Documented By: NYDIA Co-signed By: LILO Labetalol HCl (Labetalol 20 Mg/4 Ml Syringe) 10 mg IV NOW ONE Stop: 01/09/24 01:36 Last Admin: 01/09/24 02:16 Dose: Not Given Documented By: RADHA Labetalol HCl (Labetalol 20 Mg/4 Ml Syringe) 20 mg IV NOW ONE Stop: 01/09/24 02:09 Last Admin: 01/09/24 02:14 Dose: 20 mg Documented By: CHINOG Vital Signs Vital signs: Vital Signs - 8 hr 01/09/24 00:39 01/09/24 01:31 01/09/24 01:57 Temperature 97.4 F L Pulse Rate 80 88 81 Respiratory Rate 16 Blood Pressure 170/89 H Pulse Oximetry 97 98 97 Oxygen Delivery Method Room Air 01/09/24 01:57 01/09/24 02:00 01/09/24 02:00 Temperature Pulse Rate 83 Respiratory Rate Blood Pressure 157/93 H 153/105 H Pulse Oximetry 98 Oxygen Delivery Method 01/09/24 02:13 01/09/24 02:13 01/09/24 02:14 Temperature Pulse Rate 77 70 Respiratory Rate Blood Pressure 140/90 153/103 H Pulse Oximetry 96 Oxygen Delivery Method 01/09/24 02:20 01/09/24 02:20 01/09/24 02:30 Temperature Pulse Rate 77 Respiratory Rate Blood Pressure 133/76 129/78 Pulse Oximetry 96 Oxygen Delivery Method 01/09/24 02:30 01/09/24 02:40 01/09/24 02:40 Temperature Pulse Rate 84 82 Respiratory Rate Blood Pressure 140/82 Pulse Oximetry 96 97 Oxygen Delivery Method MDM - URI/Sore Throat Lab Data 01/09/24 01:45 01/09/24 01:45 Labs: Lab Results 01/09/24 01/09/24 Range/Units 01:42 01:45 WBC 8.0 (4.5-11.0) X10^3/uL RBC 4.13 (4.0-5.2) X10^6/uL Hgb 12.1 (12.0-16.0) g/dL Hct 35.0 L (36-46) % MCV 84.8 (80-100) fL MCH 29.3 (26-34) PG MCHC 34.5 (30-36) % RDW 14.1 (11.6-14.8) % Plt Count 262 (150-400) X10^3/uL Neut % (Auto) 61.1 (50-75) % Lymph % (Auto) 29.4 (25-40) % [place] % (Auto) 6.8 (3-14) % Eos % (Auto) 2.3 (2-4) % Baso % (Auto) 0.4 (0-2) % Neut # (Auto) 4900 (9088-4865) /uL Lymph # (Auto) 2400 (9254-2893) /uL [place] # (Auto) 500 (0-900) /uL Eos # (Auto) 200 (0-450) /uL Baso # (Auto) 0 (0-100) /uL Sodium 139 (137-145) mmol/L Potassium 3.7 (3.4-5.1) mmol/L Chloride 107 (98-107) mmol/L Carbon Dioxide 24 (22-32) mmol/L BUN 14 (7-17) mg/dL Creatinine 0.55 (0.52-1.04) mg/dL Estimated GFR > 60 (>60) mL/min BUN/Creatinine Ratio 25.5 H (6-22) Glucose 89 (70-100) mg/dL Uric Acid 5.4 (2.5-6.2) mg/dL Calcium 9.4 (8.4-10.2) mg/dL Total Bilirubin 0.6 (0.2-1.3) mg/dL AST 56 H (14-36) IU/L ALT 60 H (<35) IU/L Alkaline Phosphatase 190 H (38-126) U/L Lactate Dehydrogenase 216 (120-246) U/L Total Protein 7.3 (6.3-8.2) g/dL Albumin 3.8 (3.5-5.0) g/dL Globulin 3.5 (1.7-4.1) g/dL Albumin/Globulin Ratio 1.1 (1.0-2.8) Urine Color Yellow Urine Appearance Sl cloudy Urine pH 6.0 (4.5-8.0) Ur Specific [place] 1.025 (1.000-1.035) Urine Protein 2+ H (Negative) Urine Glucose (UA) Negative (Negative) g/dL Urine Ketones Negative (NEGATIVE) Urine Occult Blood 3+ H (Negative) Urine Nitrate Negative (Negative) Urine Bilirubin Negative (NEGATIVE) Urine Urobilinogen 0.2 (0.2) E.U./dL Ur Leukocyte Esterase Trace H (NEGATIVE) Urine RBC 30-100/hpf H (0-5/HPF) Urine WBC 5-10/hpf H (0-5/HPF) Ur Squamous Epith Cells 5-10 /hpf H (0-5/HPF) Urine Bacteria Few (2-10) H (None) Ur Culture Indicated? Specimen cultured Vol Urine Centrifuged 10ml (spun) U Random Total Protein 77 H (0-12) mg/dL Urine Creatinine 150.7 mg/dL Protein/Creatinin Ratio 0.51 GRAM/24H Urine Dip Bedside Urine Glucose Negative Bedside Urine Bilirubin - Negative Bedside Urine Ketone - Negative Urine Specific [place] 1.03 Bedside Urine Occult Blood +++ Bedside Urine pH 6 Bedside Urine Protein + 30 Bedside Urine Urobilinogen - Negative Bedside Urine Nitrite - Negative Bedside Urine Leukocytes + 70 Esterase Imaging Data Chest x-ray: Radiologist's Impression: Preliminary report no acute cardiopulmonary abnormalities identified MDM Narrative Medical decision making narrative: Patient 30-year-old female presenting today for days with elevated blood pressure and shortness of breath. Unclear what caused her brief episode of shortness of breath. Chest x-ray has been reviewed is negative she is afebrile. She has been having some sort of sore throat suspect a viral syndrome. We talked about testing however would be supportive measures only. She overall appears very well and not toxic or septic. Blood work has been reviewed: WBC 8.0 35.0 hemoglobin 12.1 platelets 262, sodium 139 potassium 3.7, chloride 107, carbon dioxide 24, BUN 14 creatinine 0.5 close 89 bilirubin 0.6 AST 56, ALT 60, alk-phos 190 uric acid 5.4, protein creatinine ratio 0.51 urinalysis does show protein 2+ Patient presents with shortness of breath which lasted briefly unclear cause. However she is found to be hypertensive concern for preeclampsia. She does have elevated protein and liver enzymes as well which or previously elevated but now today higher. She has no significant right upper quadrant pain. She is given 20 mg of labetalol which actually does help her blood pressure which improved her blood pressure to 129/78 Dr. Galarza on-call for OBGYN updated on patient's symptoms test results recommends admission to L&D Patient initially had some shortness of breath and upper respiratory like symptoms with sore throat. She has not hypoxic or tachycardic or tachypneic lung and breath sounds are clear bilaterally. X-ray does not show evidence of pneumonia. Consider pulmonary embolism however with out persistent ongoing symptoms I think unlikely. She did have an episode like this previously which was due to acid reflux this could also be some of her symptoms but she denies any sort of burning sensation. Discharge Plan Departure Patient Disposition: Admitted As Inpatient Clinical Impression: Pre-eclampsia Admit Date/Time: 01/09/24 02:48 Admit Provider: Tan Galarza
--- NOTE | 2024-01-09 02:03 | DI.RAD.S_ITS ---
PROCEDURE: XR CHEST 1V INDICATIONS: short of breath TECHNIQUE: One view of the chest was acquired. COMPARISON: None. FINDINGS: Surgical changes and devices: None. Lungs and pleura: Lower lung volumes. No focal consolidation, effusion, or pneumothorax. Mediastinum: Mediastinal contours appear normal. Heart size is normal. Bones and chest wall: No suspicious bony lesions. Overlying soft tissues appear unremarkable. IMPRESSION: No acute cardiopulmonary abnormality is seen. Final interpretation is concordant with preliminary report. Dictated by: Tara Gaitan M.D. on 01/09/2024 at 7:46 Approved by: Tara Gaitan M.D. on 01/09/2024 at 7:47
[2024-01-09 02:07] LABS: Alanine Aminotransferase 60 IU/L (<35); Albumin 3.8 g/dL (3.5-5.0); Albumin Globulin Ratio 1.1 (1.0-2.8); Alkaline Phosphatase 190 U/L (38-126); Aspartate Aminotransferase 56 IU/L (14-36); BUN Creatinine Ratio 25.5 (6-22); Bilirubin Total 0.6 mg/dL (0.2-1.3); Blood Urea Nitrogen 14 mg/dL (7-17); Calcium 9.4 mg/dL (8.4-10.2); Carbon Dioxide 24 mmol/L (22-32); Chloride 107 mmol/L (98-107); Estimated Glomerular Filt Rate > 60 mL/min (>60); Globulin 3.5 g/dL (1.7-4.1); Glucose 89 mg/dL (70-100); HEMOLYSIS < 15 (0-50); Lactate Dehydrogenase 216 U/L (120-246); Potassium 3.7 mmol/L (3.4-5.1); Sodium 139 mmol/L (137-145); Total Protein 7.3 g/dL (6.3-8.2); Uric Acid 5.4 mg/dL (2.5-6.2)
--- NOTE | 2024-01-09 02:13 | PC.NURSE ---
Pt is 5 days post pardum. Had preeclampsia during .
[2024-01-09] MEDS: LABETALOL 20 MG/4 ML SYRINGE IV (02:14)
[2024-01-09 02:16] LABS: Appearance Urine UA SL CLOUDY; Bilirubin Urine UA NEGATIVE (NEGATIVE); Color Urine UA YELLOW; Glucose Urine UA NEGATIVE (Negative); Ketones Urine UA NEGATIVE (NEGATIVE); Leukocyte Esterase Urine UA TRACE (NEGATIVE); Nitrite Urine UA NEGATIVE (Negative); Occult Blood Urine UA 3+ (Negative); Protein Urine UA 2+ (Negative); Specific Gravity Urine UA 1.025 (1.000-1.035); Urobilinogen Urine UA 0.2 E.U./dL (0.2)
[2024-01-09 02:17] LABS: Bacteria Urine Few (2-10); RBC Urine 30-100/HPF (0-5/HPF); Urine Volume 10mL (spun); WBC Urine 5-10/HPF (0-5/HPF)
[2024-01-09 02:18] LABS: Culture Indicated Urine Specimen Cultured; Squamous Epithelial Cell Urine 5-10 /HPF (0-5/HPF)
[2024-01-09 02:41] LABS: Creatinine Urine Random 150.7 mg/dL; Protein (Total) Urine Random 77 mg/dL (0-12); Protein Creatinine Ratio Urine 0.51 GRAM/24H
--- NOTE | 2024-01-09 03:08 | PM.HP.1 ---
History of Present Illness History of Present Illness Date Patient Seen: 01/09/24 Time Patient Seen: 08:00 Chief complaint: Upper Respiratory Narrative: Patient is a 38-year-old female 41 presenting to the [facility] ED on day number four presenting with sudden onset of shortness of breath. She reports he was sleeping on the couch she woke up she felt like she could not taken a breath at all she got onto all fours she was gasping for air lasted for less than 1 minute. She is also noted she has had some swelling of her legs in his here for evaluation. She states that she has had some ongoing dry throat and soreness in her throat no fever or chills. She previously did not have any sort of cough or shortness of breath. She states that when her daughter was born she had acid reflux in had shortness of breath at time but she does not feel like she is shortness of breath now. She has no headache chest pain or other symptoms. She has no cough. She does feel like she has a little bit of a cold with ongoing sore throat. She was noted to be hypertensive with a blood pressure 170/89, her LFT's are elevated, and her P:Cr ratio is elevated. She received a single dose of IV Labetalol in the ED which reduced her subsequent BP's there in the non-severe range. She did not have any gestational hypertension or preeclampsia prior to delivery and she was induced secondary to post dates. She is admitted now for further evaluation and management of post- preeclampsia w/ severe features. [facility] Medical History (Updated 01/09/24 @ 10:19 by Tan Galarza MD) PCOS (polycystic ovarian syndrome) History of Western blot positive for HSV1 Chronic back pain (~2017) Kidney stones (~2014) Family History Mother Hypertension Hyperlipidemia Stroke Obesity Grandfather History of heart disease Hypertension Hyperlipidemia Stroke Heart attack Obesity Father Healthy adult Grandmother No problems noted. Family/Other Depression Anxiety Obesity Social History marital status: number of children: 1 household members: spouse and children lives independently: Yes caregiver/support person: Yes housing: apartment pets and animals: Yes (2 cats; manages litter box) education level: college occupational status: employed current occupational exposures/hazards: No special dianna needs: No travel history: recent seatbelt use: always water heater temp set < 120 deg: Yes working smoke detector in home: Yes fire extinguisher in home: Yes carbon monox detector in home: Yes firearms in home: Yes do you feel safe at home: Yes Smoking Status: Former smoker Tobacco: How many years used: 2 second hand exposure: No alcohol intake: former substance use type: does not use and marijuana during the past year weight has: other daily servings fruits/ve-4 caffeine: Yes (1 cup coffee/day) Type(s) of exercise: walking frequency: 5-6 times per week duration: 15-30 minutes/day Meds Home Medications and Allergies Home Medications Medication Instructions Recorded Confirmed Type prenat.vits,helen,[id number] 1 tab PO DAILY 12/02/22 01/04/24 History acetaminophen 325 mg tablet 650 mg (2 x 325 mg) PO Q6HR PRN 01/05/24 Rx Pain, Mild (1-3) #30 tabs docusate sodium 100 mg capsule 100 mg PO DAILY #30 caps 01/05/24 Rx ibuprofen 600 mg tablet 600 mg PO Q6HR PRN Pain, Mild 01/05/24 Rx (1-3) #60 tabs Allergies Allergy/AdvReac Type Severity Reaction Status Date / Time No Known Drug Allergies Allergy Verified 01/04/24 13:08 Review of Systems Review of Systems Narrative: Problem-specific ROS positives included in HPI Exam Vital Signs (past 8 hours): - 01/09/24 00:39 01/09/24 01:31 01/09/24 01:57 Temperature 97.4 F L Pulse Rate 80 88 81 Respiratory Rate 16 Blood Pressure 170/89 H Pulse Oximetry 97 98 97 Oxygen Delivery Method Room Air 01/09/24 01:57 01/09/24 02:00 01/09/24 02:00 Temperature Pulse Rate 83 Respiratory Rate Blood Pressure 157/93 H 153/105 H Pulse Oximetry 98 Oxygen Delivery Method 01/09/24 02:13 01/09/24 02:13 01/09/24 02:14 Temperature Pulse Rate 77 70 Respiratory Rate Blood Pressure 140/90 153/103 H Pulse Oximetry 96 Oxygen Delivery Method 01/09/24 02:20 01/09/24 02:20 01/09/24 02:30 Temperature Pulse Rate 77 Respiratory Rate Blood Pressure 133/76 129/78 Pulse Oximetry 96 Oxygen Delivery Method 01/09/24 02:30 01/09/24 02:40 01/09/24 02:40 Temperature Pulse Rate 84 82 Respiratory Rate Blood Pressure 140/82 Pulse Oximetry 96 97 Oxygen Delivery Method Oxygen Delivery Method Room Air Const General: cooperative and comfortable Nutritional Appearance: average body habitus Orientation: alert and oriented x3 HENMT Head: normal to inspection, atraumatic and abrasion Ears: hearing grossly normal bilaterally Face and sinus: face symmetric Eyes General: appearance normal, both eyes and all related structures Conjunctivae: conjunctivae normal Sclera: sclerae normal EOM: EOM intact bilaterally Neck Neck: normal visual inspection Resp Effort & Inspection: normal respiratory effort and able to speak in complete sentences Auscultation: clear to auscultation bilaterally, normal I/E ratio, lung sounds not diminished, no rales and no wheezes Cardio Rate: regular rate Rhythm: regular rhythm Heart Sounds: S1 normal, S2 normal and no murmurs GI Inspection: normal to inspection Palpation: soft, no hepatosplenomegaly and mass (14 wk FH, non-tender) External Female Exam: laceration (Intact) and other (No significant bleeding noted) Neuro DTR's: Lt Biceps: 2+, Rt Patellar: 2+, Lt Patellar: 2+, Rt Ankle: 2+ and Lt Ankle: 2+ Extrem General: no calf tenderness Psych Appearance: grossly normal Mental Status: mental status grossly normal Speech and Movement: speech and movement normal Mood: congruent mood Affect: normal affect Attitude: cooperative Thought Process: normal Thought Content: normal Judgment: judgment good Objective Imaging Chest x-ray: Radiologist's impression: PROCEDURE: XR CHEST 1V INDICATIONS: short of breath TECHNIQUE: One view of the chest was acquired. COMPARISON: None. FINDINGS: Surgical changes and devices: None. Lungs and pleura: Lower lung volumes. No focal consolidation, effusion, or pneumothorax. Mediastinum: Mediastinal contours appear normal. Heart size is normal. Bones and chest wall: No suspicious bony lesions. Overlying soft tissues appear unremarkable. IMPRESSION: No acute cardiopulmonary abnormality is seen. Final interpretation is concordant with preliminary report. Labs 01/09/24 01:45 01/09/24 01:45 Labs: Laboratory Results - last 24 hr 01/09/24 01/09/24 01:42 01:45 WBC 8.0 RBC 4.13 Hgb 12.1 Hct 35.0 L MCV 84.8 MCH 29.3 MCHC 34.5 RDW 14.1 Plt Count 262 Neut % (Auto) 61.1 Lymph % (Auto) 29.4 [place] % (Auto) 6.8 Eos % (Auto) 2.3 Baso % (Auto) 0.4 Neut # (Auto) 4900 Lymph # (Auto) 2400 [place] # (Auto) 500 Eos # (Auto) 200 Baso # (Auto) 0 Sodium 139 Potassium 3.7 Chloride 107 Carbon Dioxide 24 BUN 14 Creatinine 0.55 Estimated GFR > 60 BUN/Creatinine Ratio 25.5 H Glucose 89 Uric Acid 5.4 Calcium 9.4 Total Bilirubin 0.6 AST 56 H ALT 60 H Alkaline Phosphatase 190 H Lactate Dehydrogenase 216 Total Protein 7.3 Albumin 3.8 Globulin 3.5 Albumin/Globulin Ratio 1.1 Urine Color Yellow Urine Appearance Sl cloudy Urine pH 6.0 Ur Specific [place] 1.025 Urine Protein 2+ H Urine Glucose (UA) Negative Urine Ketones Negative Urine Occult Blood 3+ H Urine Nitrate Negative Urine Bilirubin Negative Urine Urobilinogen 0.2 Ur Leukocyte Esterase Trace H Urine RBC 30-100/hpf H Urine WBC 5-10/hpf H Ur Squamous Epith Cells 5-10 /hpf H Urine Bacteria Few (2-10) H Ur Culture Indicated? Specimen cultured Vol Urine Centrifuged 10ml (spun) U Random Total Protein 77 H Urine Creatinine 150.7 Protein/Creatinin Ratio 0.51 Assessment & Plan Assessment and plan (1) Severe pre-eclampsia, : Status: Acute (2) Pharyngitis: Qualifiers: Pharyngitis/tonsillitis etiology: unspecified etiology Qualified Code(s): J02.9 - Acute pharyngitis, unspecified Status: Acute Plan Patient is currently receiving labetalol 200 mg p.o. t.i.d. along magnesium sulfate 2 grams/hour following 4 g bolus. Current regimen is being well tolerated and blood pressures are now consistently in the non-severe range. Magnesium sulfate will be continued for 24 hours plans for discontinuation if blood pressures are consistently in the non severe range where as the oral labetalol will be continued maintain normal blood pressures in the period. Guaifenesin 1200 mg PO now and BID. Will repeat CBC and CMP in a.m. and if BP remains under good control on PO Labetalol, anticipate discharge tomorrow. Patient is aware of the rationale for her admission/treatment as well as the currently anticipated plans for management.
[2024-01-09] MEDS: FUROSEMIDE 20 MG TABLET 10 MG PO ×2 (03:46→17:06)
[2024-01-09] MEDS: MAGNESIUM SULFATE 4 GM/100 ML PIGGYBACK IV (03:47)
[2024-01-09] MEDS: LACTATED RINGERS 1,000 ML 25 ML IV (03:47)
[2024-01-09] MEDS: LABETALOL 100 MG TABLET 200 MG PO ×4 (04:13→20:56)
[2024-01-09] MEDS: MAGNESIUM SULFATE 20 GM/500 ML IV.SOLN IV ×2 (04:17→16:15)
[2024-01-09] MEDS: ACETAMINOPHEN 325 MG TABLET 650 MG PO ×2 (08:00→20:12)
--- NOTE | 2024-01-09 08:25 | PC.NURSE ---
0800 Patient up to bathroom,voided back to bed,c/o headache ,tylenol given, trace swelliing in feet,DTR +2,clonos negative,patient alert and oriented x3,Magnesium Sulfate infusing at 50cc/hr with LR at 25cc.IV site without pain,discomfort,infusing without problems.VSS.
--- NOTE | 2024-01-09 09:16 | PC.NURSE ---
0866 called,report given; new orders recieved.
--- NOTE | 2024-01-09 09:17 | PC.NURSE ---
0900 Laebetalol given,VSS,updated patient of new orders.
--- NOTE | 2024-01-09 09:52 | PC.NURSE ---
0900 VSS, labetalol given,pain level improved with tylenol; comfortable.
--- NOTE | 2024-01-09 10:13 | PC.NURSE ---
1000 at bedside;new orders noted.
[2024-01-09 10:43] LABS: Magnesium 4.2 mg/dL (1.6-2.3)
[2024-01-09] MEDS: IBUPROFEN 600 MG TABLET PO ×2 (10:58→20:12)
--- NOTE | 2024-01-09 11:05 | PC.NURSE ---
1100 complains of headache; scale of 5/10,gave ibuprofen.IV infusing well.
[2024-01-09] MEDS: guaiFENesin ER 600 MG TAB 1200 MG PO (15:00)
--- NOTE | 2024-01-09 15:17 | PC.NURSE ---
patient comfortable,visiting family,VSS, DTR's +2; clonus 0,magnesium infusing.
[2024-01-09 16:17] LABS: Magnesium 4.6 mg/dL (1.6-2.3)
--- NOTE | 2024-01-09 16:31 | PC.NURSE ---
1605 Patient alert and oriented x3,DTR's +2,clonus 0, resting,no complaints.IV in R.antecubital discontinue, placed another in the L.hand,patient tolerated well.IV infusing.
--- NOTE | 2024-01-09 17:54 | PC.NURSE ---
1620 called for patient update,results of Mag level given,VSS,DTR;s +2,no clonus, up to bathroom, output adequate.She c/o eyes feel like they crossed randomly,Blood pressure WNL, no new orders.
--- NOTE | 2024-01-09 19:05 | PC.NURSE ---
1900 intake IV 1010. VSS
[2024-01-10] VITALS (9 sets, daily range): BP systolic 105–145; BP diastolic 63–85; PULSE 79–89; RESP 17–20; TEMP 36.1–36.4; O2SAT 95–99
[2024-01-10 06:26] LABS: Add Manual Diff / Slide Review NO; Basophils Absolute Auto 0 /uL (0-100); Basophils Percent Auto 0.3 % (0-2); Eosinophils Absolute Auto 100 /uL (0-450); Hematocrit 32.8 % (36-46); Hemoglobin 11.2 g/dL (12.0-16.0); Lymphocytes Absolute Auto 1700 /uL (1100-4500); Lymphocytes Percent Auto 25.4 % (25-40); Mean Corpuscular Hemoglobin 29.2 PG (26-34); Mean Corpuscular Volume 85.7 fL (80-100); Monocytes Absolute Auto 400 /uL (0-900); Monocytes Percent Auto 6.6 % (3-14); Neutrophils Absolute Auto 4300 /uL (1500-7000); Neutrophils Percent Auto 65.7 % (50-75); Platelet Count 231 X10^3/uL (150-400); Red Blood Cell Count 3.83 X10^6/uL (4.0-5.2); Red Cell Distribution Width 14.3 % (11.6-14.8); White Blood Cell Count 6.6 X10^3/uL (4.5-11.0)
[2024-01-10 06:37] LABS: Alanine Aminotransferase 55 IU/L (<35); Albumin 3.5 g/dL (3.5-5.0); Albumin Globulin Ratio 1.2 (1.0-2.8); Alkaline Phosphatase 173 U/L (38-126); Aspartate Aminotransferase 37 IU/L (14-36); BUN Creatinine Ratio 14.8 (6-22); Bilirubin Total 0.4 mg/dL (0.2-1.3); Blood Urea Nitrogen 9 mg/dL (7-17); Carbon Dioxide 26 mmol/L (22-32); Chloride 108 mmol/L (98-107); Estimated Glomerular Filt Rate > 60 mL/min (>60); Glucose 84 mg/dL (70-100); HEMOLYSIS < 15 (0-50); Potassium 3.8 mmol/L (3.4-5.1); Sodium 137 mmol/L (137-145); Total Protein 6.5 g/dL (6.3-8.2)
[2024-01-10] MEDS: LABETALOL 100 MG TABLET 200 MG PO (08:54)
[2024-01-10] MEDS: ACETAMINOPHEN 325 MG TABLET 650 MG PO (08:56)
[2024-01-10] MEDS: IBUPROFEN 600 MG TABLET PO (08:58)
[2024-01-10] MEDS: FUROSEMIDE 20 MG TABLET 10 MG PO (09:01)
--- NOTE | 2024-01-10 10:05 | P.DS_ITS ---
History of Present Illness History of Present Illness Date Patient Seen: 01/10/24 Time Patient Seen: 10:06 Chief complaint: Upper Respiratory Narrative: Patient is a 38-year-old female 41 presenting to the [facility] ED on day number four presenting with sudden onset of shortness of breath. She reports he was sleeping on the couch she woke up she felt like she could not taken a breath at all she got onto all fours she was gasping for air lasted for less than 1 minute. She is also noted she has had some swelling of her legs in his here for evaluation. She states that she has had some ongoing dry throat and soreness in her throat no fever or chills. She previously did not have any sort of cough or shortness of breath. She states that when her daughter was born she had acid reflux in had shortness of breath at time but she does not feel like she is shortness of breath now. She has no headache chest pain or other symptoms. She has no cough. She does feel like she has a little bit of a cold with ongoing sore throat. She was noted to be hypertensive with a blood pressure 170/89, her LFT's are elevated, and her P:Cr ratio is elevated. She received a single dose of IV Labetalol in the ED which reduced her subsequent BP's there in the non-severe range. She did not have any gestational hypertension or preeclampsia prior to delivery and she was induced secondary to post dates. She is admitted now for further evaluation and management of post- preeclampsia w/ severe features. Discharge Providers Provider Date of admission: 01/09/24 02:48 Discharge Date: 01/10/24 Primary care physician: Lorrie Nash MD Discharge provider: Tan Galarza MD Summary Hospital Course Discharge Diagnosis: preeclampsia with severe features Upper respiratory infection with pharyngitis Hospital Course: Zena was admitted through the emergency department early on the morning of 01/09/2024 due to development of preeclampsia with severe features. Liver functions were elevated at the time of admission and her protein to creatinine ratio was also elevated in the face of blood pressures in the severe range. She received a total of 30 mg of IV labetalol in the emergency department before being transferred to the center where she was initiated on labetalol 200 mg p.o. t.i.d. as well as magnesium sulfate, 4 g bolus followed by 2 grams/hour infusion. Over the ensuing 24 hours her blood pressures came under excellent control and she is tolerating the labetalol well. Her upper respiratory congestion and pharyngitis are stable and she does not seem at this point to have any bronchitis or bronchiolitis. Her magnesium sulfate was discontinued after 24 hours and her blood pressures have remained stable following its discontinuation. In addition her liver function studies show improvement or are unchanged from admission. During the course of admission the patient has lost 5 lb with bedrest and gentle diuresis with a total of 3 doses of Lasix 10 mg p.o. Q 12 hours. She will be discharged in an afebrile normotensive condition after counseling regarding precautionary symptoms, limitations of activity, medications, and plans for follow-up which will be in 1 [address] Denise for blood pressure check and possible adjustment of her labetalol dosing. Medications at discharge will include resumption of all pre-admission medications along with labetalol 200 mg p.o. t.i.d.. Status at Discharge Cognitive/behavioral status at discharge: oriented Functional status at discharge: independent ambulation Overall status at discharge: patient is back to baseline Time Spent with Patient Time spent: Less than 30 minutes Exam Vital Signs (past 8 hours): - 01/10/24 03:00 01/10/24 04:00 01/10/24 08:00 Temperature 97.5 F L 97.6 F Pulse Rate 82 80 89 Respiratory Rate 20 18 17 Blood Pressure 145/85 H 124/76 132/69 Pulse Oximetry 98 98 99 01/10/24 08:00 01/10/24 08:54 01/10/24 08:56 Temperature 97.6 F 97.6 F Pulse Rate 89 89 Respiratory Rate 17 Blood Pressure 132/69 132/69 Pulse Oximetry 99 01/10/24 08:58 Temperature 97.6 F Pulse Rate Respiratory Rate Blood Pressure Pulse Oximetry Oxygen Delivery Method Room Air Const General: cooperative and comfortable Nutritional Appearance: average body habitus Orientation: alert and oriented x3 HENMT Head: normal to inspection, atraumatic and abrasion Ears: hearing grossly normal bilaterally Face and sinus: face symmetric Eyes General: appearance normal, both eyes and all related structures Conjunctivae: conjunctivae normal Sclera: sclerae normal EOM: EOM intact bilaterally Neck Neck: normal visual inspection Resp Effort & Inspection: normal respiratory effort and able to speak in complete sentences Auscultation: clear to auscultation bilaterally Cardio Rate: regular rate Rhythm: regular rhythm Heart Sounds: S1 normal, S2 normal and no murmurs GI Inspection: normal to inspection Palpation: soft and no hepatosplenomegaly External Female Exam: other (No significant bleeding noted) Neuro DTR's: Rt Patellar: 2+, Lt Patellar: 2+, Rt Ankle: 2+ and Lt Ankle: 2+ Extrem General: no calf tenderness Psych Appearance: grossly normal Mental Status: mental status grossly normal Speech and Movement: speech and movement normal Mood: congruent mood Affect: normal affect Attitude: cooperative Thought Process: normal Thought Content: normal Judgment: judgment good Objective Labs 01/10/24 06:18 01/10/24 06:18 Labs: Laboratory Results - last 24 hr 01/09/24 01/09/24 01/10/24 10:25 16:00 06:18 WBC 6.6 RBC 3.83 L Hgb 11.2 L Hct 32.8 L MCV 85.7 MCH 29.2 MCHC 34.0 RDW 14.3 Plt Count 231 Neut % (Auto) 65.7 Lymph % (Auto) 25.4 [place] % (Auto) 6.6 Eos % (Auto) 2.0 Baso % (Auto) 0.3 Neut # (Auto) 4300 Lymph # (Auto) 1700 [place] # (Auto) 400 Eos # (Auto) 100 Baso # (Auto) 0 Sodium 137 Potassium 3.8 Chloride 108 H Carbon Dioxide 26 BUN 9 Creatinine 0.61 Estimated GFR > 60 BUN/Creatinine Ratio 14.8 Glucose 84 Calcium 7.0 L Magnesium 4.2 H 4.6 H Total Bilirubin 0.4 AST 37 H ALT 55 H Alkaline Phosphatase 173 H Total Protein 6.5 Albumin 3.5 Globulin 3.0 Albumin/Globulin Ratio 1.2 REPLACED BY [facility] Medical History (Updated 01/09/24 @ 10:19 by Tan Galarza MD) PCOS (polycystic ovarian syndrome) History of Western blot positive for HSV1 Chronic back pain (~2017) Kidney stones (~2014) Family History Mother Hypertension Hyperlipidemia Stroke Obesity Grandfather History of heart disease Hypertension Hyperlipidemia Stroke Heart attack Obesity Father Healthy adult Grandmother No problems noted. Family/Other Depression Anxiety Obesity Social History marital status: number of children: 1 household members: spouse and children lives independently: Yes caregiver/support person: Yes housing: apartment pets and animals: Yes (2 cats; manages litter box) education level: college occupational status: employed current occupational exposures/hazards: No special dianna needs: No travel history: recent seatbelt use: always water heater temp set < 120 deg: Yes working smoke detector in home: Yes fire extinguisher in home: Yes carbon monox detector in home: Yes firearms in home: Yes do you feel safe at home: Yes Smoking Status: Former smoker Tobacco: How many years used: 2 second hand exposure: No alcohol intake: former substance use type: does not use and marijuana during the past year weight has: other daily servings fruits/ve-4 caffeine: Yes (1 cup coffee/day) Type(s) of exercise: walking frequency: 5-6 times per week duration: 15-30 minutes/day Discharge Assessment & Plan Assessment and Plan Assessment: preeclampsia with severe features Upper respiratory infection with pharyngitis Plan of Treatment: Patient will be discharged to home with close follow-up by her primary delivering physician, Dr. Ellen Stapleton. Discharge Plan Discharge Plan Patient Disposition: Home Provider Discharge Comment: Please review the written instructions you received when you were discharged from the hospital. You will need to call Dr. Denise's office at [phone] in order to schedule a follow-up appointment for later this week or early next to have your blood pressure checked. In the meanwhile if you have any issues, concerns, or questions, please contact Dr. Stapleton's office by phone or via the patient portal. Discharge orders & Medications Prescriptions: New labetalol 100 mg Tablet 200 mg PO TID Qty: 180 12RF Continued prenat.vits,helen,oet-hyhw-hffjv Tablet 1 tab PO DAILY acetaminophen 325 mg Tablet 650 mg PO Q6HR PRN (Reason: Pain, Mild (1-3)) Qty: 30 0RF docusate sodium 100 mg Capsule 100 mg PO DAILY Qty: 30 0RF ibuprofen 600 mg Tablet 600 mg PO Q6HR PRN (Reason: Pain, Mild (1-3)) Qty: 60 0RF Follow up/Referrals: Lorrie Nash MD [Primary Care Provider] - Discharge Health Status Multidrug resistant organism: No MDRO Diet/Activity/Treatments Diet: Diet as Tolerated Activity: As tolerated Other treatments: Yujr-slm-budermb stool softeners and/or MiraLax may be used for as needed constipation. Skin/Wound/Dressing Care Report to your healthcare provider any signs of infection, such as:: chills, fever, increased pain, unusual drainage and unusual redness Dressing: N/A Visit Report/Discharge Packet Instructions: DI for Pre-eclampsia Stand Alone Forms: Patient Portal/API, Stroke Signs & Symptoms Discharge Data Primary Care Provider: Lorrie Nash Quality VTE Deep Vein Thrombosis/Pulmonary Embolism Present on Admission: No
== END 2024-01-10 11:20 | disposition home or self-care (01) | DRG 776 ==
LOC: ED 02:49 → AC 02:49 → LABOR 03:19
PROVIDERS: Admitting Provider Obstetrics & Gynecology; Emergency Provider Emergency Medicine; Family Provider Family Medicine; PCP Family Medicine; Referring Provider Emergency Medicine; Visit Provider Obstetrics & Gynecology
DX: O14.15 Severe pre-eclampsia, complicating the puerperium (principal); O99.53 Diseases of the respiratory system complicating the puerperium; J02.9 Acute pharyngitis, unspecified
CPT/HCPCS: 36415; 36592; 71045; 80053; 81001; 81003; 82570; 83615; 83735; 84156; 84550; 85025; 87086; 99284; J3475

== ENCOUNTER → 2024-02-29 15:10 | Outpatient (CLI) | payer OTHER, SELFPAY ==
[2024-01-09 02:56] VITALS: BMI 36.7
--- NOTE | 2024-02-29 15:13 | DI.US.S_ITS ---
PROCEDURE: US PELVIC COMPLETE INDICATIONS: f/u dermoid cyst TECHNIQUE: Real-time scanning was performed of the pelvic organs, with image documentation. Additional endovaginal scanning was necessary due to incomplete visualization of the adnexal and endometrial structures by transabdominal scanning. COMPARISON: US, US OB >= 14 WEEKS FETUS, 08/05/2023, 14:22. [facility], US, US PELVIC COMPLETE, 03/30/2023, 8:00. FINDINGS: Uterus: Uterus is anteverted and normal in size at 9.0 x 4.4 x 7.0 cm. The myometrium is homogeneous. The endometrium measures 8.9 mm combined thickness. Ovaries: The right ovary measures 5.0 x 2.7 x 3.7cm, with a calculated ovarian volume of 26.3 cc. The left ovary measures 1.9 x 3.6 x 2.4 cm, with a calculated ovarian volume of 8.8 cc. There is a focus of heterogeneous echogenicity within the right ovary measuring 3.4 x 3.9 x 2.7 cm compared to 2.6 x 2.8 x 2.8 cm. There appears to be a fat containing component. No increased vascularity. Other: No pathologic free abdominal or pelvic fluid. IMPRESSION: Mild interval increase in size of what appears to be right ovarian dermoid. We strive to produce accurate, complete, and clear reports of imaging services. To assist us in improving patient care, this report was composed using standard report templates and voice recognition software. Therefore, it may contain abnormal punctuation, insertions and/or omissions. Occasional wrong-word or sound-alike substitutions may occur. Though we review the report and make efforts to correct it, we do recommend that the report be read carefully in proper context to recognize any text inaccuracies. Dictated by: Tawanna Barone M.D. on 02/29/2024 at 17:01 Approved by: Tawanna Barone M.D. on 02/29/2024 at 17:03
== END ==
PROVIDERS: Family Provider Family Medicine; PCP Family Medicine; Referring Provider Family Medicine; Visit Provider Family Medicine
DX: D27.0 Benign neoplasm of right ovary (principal)
CPT/HCPCS: 76830; 76856; 93976

== ENCOUNTER 2024-06-02 11:25 | Day surgery (SDC) | payer OTHER, SELFPAY ==
[2024-01-09 02:56] VITALS: BMI 36.7
[2024-05-11 14:59] VITALS: BMI 33.7
[2024-06-02] VITALS (10 sets, daily range): BP systolic 124–148; BP diastolic 82–90; PULSE 68–96; RESP 10–16; TEMP 36.3–36.6; O2SAT 97–100; BMI 35.6
--- NOTE | 2024-06-02 | PATH_ITS ---
[facility] Accession Number: [id number] No. of containers..01 Tissue . 01 Material submitted: . ovary - RIGHT OVARIAN DERMOID . 01 Diagnosis: RIGHT OVARIAN CYST, EXCISION: Consistent with mature cystic teratoma. No evidence of malignancy. MRV 06/07/2024 1610 Local . 01 Electronically signed: . Maged Ricks MD, PhD, Pathologist NPI- [id number] . 01 Gross description: . Received in formalin with two patient identifiers and right ovarian dermoid, is a disrupted cyst, 3.2 x 3.0 x 2.2 cm, with a full thickness defect, 0.2 cm in greatest dimension. The slightly ragged cauterized edge is inked blue while the remaining external surface is inked green. Multiple cystic structures ranging from 0.4 to 2.6 cm in greatest dimension with contents ranging from clear and serous to laurent and grumous with a few fragments of hair identified. A solid component measures 1.2 x 1.0 x 0.9 cm while the remaining wall is thin with no excrescence identified and averages 0.1 cm thick. Director Of Creative Services sections are submitted in A1-A3. ([id number]) /MRV 06/03/2024 1141 Local . 01 Pathologist provided ICD-10: D27.0 . 01 CPT . 411094 Specimen Comment: A courtesy copy of this report has been sent to [phone] Performed at: [address] [id number] MD Sven Bhakta MD Phone: [phone]
[2024-06-02] MEDS: LACTATED RINGERS 1,000 ML 42 ML IV ×2 (11:51→15:50)
[2024-06-02] MEDS: ACETAMINOPHEN 325 MG TABLET 975 MG PO (11:52)
--- NOTE | 2024-06-02 13:11 | PM.PREOP ---
Pre-operative Note COVID-19 COVID-19 status: Not tested Interval Note History & Physical reviewed/Exam performed by Physician: Yes Changes to H&P: No
--- NOTE | 2024-06-02 14:03 | SUR.OPER ---
Addendum entered by Sheela Soriano R.N. 06/02/24 14:05: Lithotomy on padded OR bed, head on pillow, arms padded and tucked at sides. Legs secured in padded yellow fins stirrups. Original Note: Lithotomy on padded OR bed, head on pillow, arms padded and tucked. Legs secured in padded yellow fins stirrups.
[2024-06-02] MEDS: BUPIVACAINE 0.5% (PF) 30 ML, EPINEPHrine 0.15 MG INJ (14:59)
[2024-06-02] MEDS: hydrOXYzine 50 MG/ML INJ 25 MG IM (15:03)
[2024-06-02] MEDS: ONDANSETRON 4 MG/2 ML INJ IV (15:03)
[2024-06-02] MEDS: OXYCODONE IR 5 MG TABLET PO (15:14)
--- NOTE | 2024-06-02 15:38 | P.OP_ITS ---
Operative Date/Time/Diagnoses Date of procedure: 06/02/24 Time of procedure: 13:30 Pre-op diagnosis: Right ovarian dermoid cyst Post-op diagnosis: same Procedure & Clinicians Procedure: Procedures Operation Date: 06/02/24 12:45 Actual Procedure Side Surgeon p Laparoscopic right Ovarian Cystectomy Right Tan Galarza MD Indications: Zena returns today to discuss possible surgery for a slowly growing right ovarian dermoid. The dermoid itself is asymptomatic in her cycles are regular with her most recent menses beginning yesterday. Patient's most recent performed 02/29/2024 ultrasound shows PROCEDURE: US PELVIC COMPLETE INDICATIONS: f/u dermoid cyst TECHNIQUE: Real-time scanning was performed of the pelvic organs, with image documentation. Additional endovaginal scanning was necessary due to incomplete visualization of the adnexal and endometrial structures by transabdominal scanning. COMPARISON: US, US OB >= 14 WEEKS FETUS, 08/05/2023, 14:22. [facility], US, US PELVIC COMPLETE, 03/30/2023, 8:00. FINDINGS: Uterus: Uterus is anteverted and normal in size at 9.0 x 4.4 x 7.0 cm. The myometrium is homogeneous. The endometrium measures 8.9 mm combined thickness. Ovaries: The right ovary measures 5.0 x 2.7 x 3.7cm, with a calculated ovarian volume of 26.3 cc. The left ovary measures 1.9 x 3.6 x 2.4 cm, with a calculated ovarian volume of 8.8 cc. There is a focus of heterogeneous echogenicity within the right ovary measuring 3.4 x 3.9 x 2.7 cm compared to 2.6 x 2.8 x 2.8 cm. There appears to be a fat containing component. No increased vascularity. Other: No pathologic free abdominal or pelvic fluid. IMPRESSION: Mild interval increase in size of what appears to be right ovarian dermoid. After consideration of all options, patient has elected to proceed with laparoscopic right ovarian cystectomy and possible right oophorectomy for slowly growing dermoid of the right ovary. She presents today for her scheduled surgery. Surgeon: Tan Galarza Brake Adjuster: Dulce Metcalf Anesthesia Type: General Operative Notes Findings: 4 cm dermoid cyst arising on the anti hilar portion of the right ovary. The remainder of the pelvis and abdomen are normal to laparoscopic visualization. Closure Type: primary Specimen(s): other (Right ovarian cyst (dermoid)) Estimated blood loss (mL): 10 Blood products transfused: none Procedure in detail: With the patient under satisfactory general anesthesia in the modified dorsal lithotomy position, the patient was prepped and draped in the usual manner for laparoscopy. Pre-surgical safety time-out was then taken in accordance with [facility] OR protocols. The umbilicus was infiltrated with 0.5% Marcaine with epinephrine and a 2 cm vertical incision was made in the skin of the lower umbilicus. Dissection was carried out sharply and bluntly down to the fascia which was grasped with 2 Natanael clamps. A transverse incision was made with Metzenbaum scissors and the peritoneum easily entered. Retaining sutures of 0 Vicryl were placed at each end of this incision and a 12 mm Robert cannula was placed through the incision into the abdominal cavity. The abdomen was insufflated with carbon dioxide and correct placement of the port confirmed laparoscopically. Two 5 mm ports were then placed in the right and left mid quadrants in the same fashion as the umbilical port had been placed. Using a 3 puncture technique, the pelvis was visualized in its entirety along with the abdominal cavity after the patient was placed in Trendelenburg. The right ovary was grasped so as to be able to be fully visualized and using monopolar current the capsule of the ovary was incised at the edge of the dermoid. The dissection was then carried out using power Seal bipolar device and the dermoid was easily removed from the ovary intact. An Endo-Catch retrieval bag was used to retrieve the ovary which was brought out through the umbilical port. The ovary was subm itted as a pathologic specimen. The umbilical port was replaced and the pelvis thoroughly inspected. The raw surface of the ovary was coagulated with bipolar current and completely hemostatic at the completion of the case. The pelvis was irrigated with sterile saline and reinspected for any other abnormality or bleeding. There were no abnormalities or bleeding noted and the operation was concluded by venting of the pneumoperitoneum and removed all of the 3 ports. The umbilical port was closed with 0 Vicryl interrupted on the fascia and all incisions were closed with 4-0 Monocryl using inverted interrupted stitches. Skin glue was applied each of the incisions followed by application of appropriate dressings. The patient was then awakened from anesthesia and transferred to the PACU for a period of observation and recovery after having tolerated the procedure well. Complications: none Post-operative Condition: stable Disposition: PACU Plan for aftercare: Routine postoperative care with follow-up planned for June 21, 2024.
[2024-06-02] MEDS: METOCLOPRAMIDE 10 MG/2 ML INJ IV (15:50)
--- NOTE | 2024-06-02 16:01 | SUR.PHASEII ---
Pt with nausea but also need to go to the bathroom. Pt up to sit on the edge of bed. Turned very pale. Layed back down. IVF infusing. See dose of IV Reglan [id number] by Odessa CARSON from Dr Rubin and given by this Rn. Pt able to void large amt on bedpan. VSS. Resting with warm blanket at this time.
--- NOTE | 2024-06-02 16:56 | SUR.PHASEII ---
1625 Pt up. steady on feet, tolerating sylvester ashely and crackers.
== END 2024-06-02 16:40 | disposition home or self-care (01) ==
PROVIDERS: Family Provider Family Medicine; PCP Family Medicine; Referring Provider Obstetrics & Gynecology; Visit Provider Obstetrics & Gynecology
PROC: (CPT 58662; principal; 2024-06-02 12:45)
DX: D27.0 Benign neoplasm of right ovary (principal)
CPT/HCPCS: 58661; J0171; J0330; J1100; J1170; J2405; J2704; J2765; J3410

== ENCOUNTER → 2025-06-16 11:31 | Outpatient (CLI) | payer OTHER, SELFPAY ==
[2024-01-09 02:56] VITALS: BMI 36.7
--- NOTE | 2025-06-16 11:32 | DI.US.S_ITS ---
PROCEDURE: US PELVIC COMPLETE INDICATIONS: pelvic pain TECHNIQUE: Real-time scanning was performed of the pelvic organs, with image documentation. Additional endovaginal scanning was necessary due to incomplete visualization of the adnexal and endometrial structures by transabdominal scanning. COMPARISON: [facility], US, US PELVIC COMPLETE, 02/29/2024, 15:35. FINDINGS: Uterus: Uterus is anteverted and normal in size at 10.2 x 3.4 x 4.7 cm. The myometrium is homogeneous. The endometrium measures 9 mm combined thickness. Ovaries: The right ovary is not visualized. The left ovary measures 3.0 x 1.9 x 1.9 cm, with a calculated ovarian volume of 8.7 cc. The left ovary has normal sonographic appearance with less than 12 follicles seen. Normal vascular flow is seen in the left ovary. No adnexal masses are seen. Other: No pathologic free abdominal or pelvic fluid. IMPRESSION: The right ovary is not visualized. No sonographic abnormality. We strive to produce accurate, complete, and clear reports of imaging services. To assist us in improving patient care, this report was composed using standard report templates and voice recognition software. Therefore, it may contain abnormal punctuation, insertions and/or omissions. Occasional wrong-word or sound-alike substitutions may occur. Though we review the report and make efforts to correct it, we do recommend that the report be read carefully in proper context to recognize any text inaccuracies. Dictated by: Cristin Good M.D. on 06/17/2025 at 23:16 Approved by: Cristin Good M.D. on 06/17/2025 at 23:19
== END ==
LOC: US 11:31
PROVIDERS: Family Provider Family Medicine; PCP Family Medicine; Referring Provider Family Medicine; Visit Provider Family Medicine
DX: D27.0 Benign neoplasm of right ovary (principal); E28.2 Polycystic ovarian syndrome; N83.291 Other ovarian cyst, right side; R10.20 Pelvic and perineal pain unspecified side
CPT/HCPCS: 76830; 76856